=== PATIENT | female | born 1935 | race Caucasian/White ===

== ENCOUNTER 2017-05-22 09:59 | Day surgery (SDC) | payer MEDICARE, OTHER ==
[~2017-05-22] VITALS: Ht 152.4 cm; Wt 58.3 kg
[~2017-05-22 09:59] MED LIST: ASPI81EC PO; ATOR40TA PO; CIPR500 PO; DOCU100 PO; LEVSOD100 PO; LEVSOD25 PO; LOVA20 PO; METO25ER; MULVITMIND PO; Miralax17 GM PO; NAPR220 PO; OMEP10ER PO; OXYACE5T PO; PANT40 PO; PRAV20 PO; PROM25 PO; SUCR1 PO
== END 2017-05-22 12:11 | disposition home or self-care (01) ==
LOC: ORSCSDS 09:59
PROVIDERS: Internal Medicine Gastroenterology
PROC: 0DB48ZX Excision of Esophagogastric Junction, Via Natural or Artificial Opening Endoscopic, Diagnostic (ICD-10-PCS; principal; 2017-05-22 11:30)
DX: R13.10 Dysphagia, unspecified (principal); K22.70 Barrett's esophagus without dysplasia; K22.2 Esophageal obstruction; Z85.01 Personal history of malignant neoplasm of esophagus; E78.5 Hyperlipidemia, unspecified; E03.9 Hypothyroidism, unspecified; Z87.891 Personal history of nicotine dependence; Z79.82 Long term (current) use of aspirin; Z79.899 Other long term (current) drug therapy
CPT/HCPCS: 87081; 88305; J7120

== ENCOUNTER 2018-06-03 22:44 | Inpatient (IN) | payer MEDICARE, OTHER ==
[~2018-06-03] VITALS: Ht 149.9 cm; Wt 54.6 kg
[~2018-06-03 22:44] MED LIST changes: -ASPI81EC PO; +LO-DOSE ASPIRIN81 MG PO; -METO25ER; +Metoprolol Tart25 MG PO
[2018-06-04 00:24] LABS: BASOPHILS ABSOLUTE AUTO 0.03 K/mm3 (0.00-0.23); BASOPHILS PERCENT AUTO 0 % (0-2); EOSINOPHILS ABSOLUTE AUTO 0.06 K/mm3 (0.00-0.68); EOSINOPHILS PERCENT AUTO 1 % (0-6); Hematocrit 33.4 % (33.0-51.0); Hemoglobin 10.7 g/dL (11.5-16.0); IMMATURE GRAN ABSOLUTE AUTO 0.03 K/mm3 (0.00-0.10); IMMATURE GRAN PERCENT AUTO 0 % (0-1); LYMPHOCYTES PERCENT AUTO 6 % (21-46); MONOCYTES ABSOLUTE AUTO 0.32 K/mm3 (0.16-1.47); MONOCYTES PERCENT AUTO 4 % (4-13); Mean Corpuscular HGB 33.1 pg (26.0-34.0); Mean Corpuscular Volume 103 fL (80-100); Mean Platelet Volume 10.2 fL (9.1-12.4); NEUTROPHILS ABSOLUTE AUTO 7.67 K/mm3 (1.96-9.15); NEUTROPHILS PERCENT AUTO 89 % (41-73); Platelet Count 187 K/mm3 (150-400); RDW Coefficient Variation 14.9 % (11.7-14.2); RDW Standard Deviation 56.8 fL (35.1-46.3); Red Blood Cell Count 3.23 M/mm3 (3.80-5.20); White Blood Cell Count 8.61 K/mm3 (4.00-11.30)
[2018-06-04 00:32] LABS: Magnesium, Blood 2.1 mg/dL (1.6-2.4)
[2018-06-04 00:36] LABS: Alanine Aminotransfer (ALT/SGP 137 U/L (12-78); Albumin, Blood 3.3 g/dL (3.4-5.0); Albumin/Globulin Ratio 1.1 (0.8-1.8); Alk Phos 91 U/L (50-136); Anion Gap 5 mmol/L (6-16); Aspartate Aminotrans (AST/SGOT 247 U/L (12-37); Bilirubin, Total 0.6 mg/dL (0.1-1.0); Blood Urea Nitrogen 26 mg/dL (8-24); Bun/Creatinine Ratio 30.2 (12.0-20.0); CO2, Blood 26 mmol/L (21-32); Calcium, Blood 7.6 mg/dL (8.5-10.1); Chloride, Blood 110 mmol/L (98-108); Creatinine, Blood 0.86 mg/dL (0.40-1.00); Glomerular Filtration Rate >60 (60-); Glucose, Blood 100 mg/dL (70-99); Potassium, Blood 4.6 mmol/L (3.5-5.5); Sodium, Blood 141 mmol/L (136-145); Total Protein, Blood 6.3 g/dL (6.4-8.2)
[2018-06-04 00:37] LABS: Troponin I <0.015 ng/mL (0.000-0.040)
[2018-06-04 01:14] LABS: CHOL/HDL RATIO 2.6; Cholesterol 148 mg/dL (50-200); HDL Cholesterol 58 mg/dL (>39); LDL/HDL RATIO 1.3; Low Density Lipoprotein Chol 77 mg/dL (0-110); Triglycerides 66 mg/dL (30-160); Very Low Density Lipoprot Chol 13 mg/dL (6-32)
[2018-06-04] MEDS ORDERED: ROSU10TA PO (03:50)
[2018-06-04] MEDS ORDERED: ACET325 PO (03:55)
[2018-06-04] MEDS ORDERED: LEFL20 PO (03:58)
[2018-06-04] MEDS ORDERED: CENTRUM SILVER1 EAC1 PO (03:59)
[2018-06-04] MEDS ORDERED: Loradamed10 MG PO (03:59)
[2018-06-04] MEDS ORDERED: VOLTAREN100 GM TOP (04:00)
[2018-06-04] MEDS ORDERED: [UNRECOGNIZED DRUG - OTHER] TOP (04:04)
[2018-06-04] MEDS ORDERED: [UNRECOGNIZED DRUG - OTHER] (04:06)
--- NOTE | 2018-06-04 05:57 | NUR ---
END OF SHIFT SUMMARY ASSUMED CARE OF PT FROM THE [facility] ED NURSE. PT TO ROOM VIA STRETCHER BUT AMBULATES INTO BED WITH LITTLE ASSIST. PT ALERT AND ORIENTED, TALKING WITH STAFF. POOR HISTORIAN. PT DENYING CP/PRESSURE UPON ADMISSIONS AND HAS DENIED SINCE. STATES CP SUBSIDED IN ED. PT HEART SOUNDS PRESENT WITH LOUD MURMUR. LUNG SOUNDS CLEAR. BOWEL SOUNDS HYERACTIVE. ABDOMEN MOD DISTENDED, PT STATES LITTLE TENDERNESS ABDOMINALLY. PT C/O HEADACHE UPON ADMISSION. MEDICATED PER EMAR. PT HAD ACOUPLE BOUTS OF NAUSEA WITH NO EMESIS, APPEARS TO HAVE SINCE SUBSIDED POST PANTOPRAZOLE IV ADMINISTRATION. PT HAS NPO ORDERS PLACED. VSS T/O SHIFT. 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 ASSESMENT SHOWS PT NOT NEEDING ISO AT THIS TIME. WILL NEED TO START MRSA CLEARANCE. PT HAS APPEARED TO BE RESTING SINCE ADMISSION ASSESMENT. WILL CONTINUE TO MONITOR PT UNTIL SHIFT SUMMARY. CALL LIGHT WITHIN REACH OF PT.
[2018-06-04 06:43] LABS: Source, Urine Clean Catch
[2018-06-04 06:46] LABS: Appearance, Urine Clear (Clear); Bilirubin, Urine Neg (Neg); Blood, Urine Neg (Neg); Color, Urine Yellow (P-Yellow); Glucose Qualitative, Urine Neg (Neg); Ketones, Urine Neg (Neg); Leukocyte Esterase, Urine Neg (Neg); Nitrite, Urine Neg (Neg); Protein, Urine Neg (Neg); Urobilinogen, Urine NORM (Normal)
--- NOTE | 2018-06-04 11:51 | NUR ---
ECHOCARDIOGRAM COMPLETED
[2018-06-04 12:38] LABS: Hematocrit 32.4 % (33.0-51.0); Hemoglobin 10.6 g/dL (11.5-16.0); Mean Corpuscular HGB 33.4 pg (26.0-34.0); Mean Corpuscular HGB Conc 32.7 g/dL (31.5-36.5); Mean Corpuscular Volume 102 fL (80-100); Mean Platelet Volume 9.6 fL (9.1-12.4); Platelet Count 177 K/mm3 (150-400); RDW Standard Deviation 55.6 fL (35.1-46.3); Red Blood Cell Count 3.17 M/mm3 (3.80-5.20); White Blood Cell Count 12.58 K/mm3 (4.00-11.30)
[2018-06-04 12:54] LABS: Alanine Aminotransfer (ALT/SGP 159 U/L (12-78); Alk Phos 81 U/L (50-136); Anion Gap 6 mmol/L (6-16); Aspartate Aminotrans (AST/SGOT 215 U/L (12-37); Bilirubin, Total 0.6 mg/dL (0.1-1.0); Blood Urea Nitrogen 17 mg/dL (8-24); Bun/Creatinine Ratio 25.1 (12.0-20.0); CO2, Blood 22 mmol/L (21-32); Calcium, Blood 7.8 mg/dL (8.5-10.1); Chloride, Blood 112 mmol/L (98-108); Creatinine, Blood 0.68 mg/dL (0.40-1.00); Glomerular Filtration Rate >60 (60-); Glucose, Blood 89 mg/dL (70-99); Potassium, Blood 4.6 mmol/L (3.5-5.5); Sodium, Blood 140 mmol/L (136-145)
--- NOTE | 2018-06-04 13:53 | NUR ---
Patient gave permission to access chart and give patient care.
--- NOTE | 2018-06-04 16:07 | NUR ---
THIS PT GAVE ME PERMISSION TO PROVIDE CARE TO HER ON 06/05/18.
--- NOTE | 2018-06-04 16:13 | NUR ---
PT RETURNED FROM MRI IMAGING, FEELING THIRSTY, RESTARTED IV FLUIDS AND ASSISTED WITH ORAL CARE AND GLYCERIN SWABS AND ORAL MOISTURIZER.
--- NOTE | 2018-06-04 18:47 | NUR ---
PT SLEPT OFF AND ON THROUGHOUT THIS SHIFT. SHE REPORT THAT SHE HAS HAD INCREASED DROWSINESS OVER THE LAST SEVERAL WEEKS AND "TIRES EASILY" PT WENT FOR MRI TODAY. DR GARCIA STARTED ABX AND STATED THAT IF PT HAS CONTINUED PAIN THAT IS NOT ADDRESSED BY THE FENTYNAL, SHE CAN HAVE A TYLENOL SC, THIS RN WILL PLACE ORDER SO IT IS AVALIABLE IF NOC RN SHOULD NEED IT. PT COMPLAINT OF PAIN IN HER UPPER BACK AND SHOULDERS WELL THE BACK OF HER HEAD, SHE STATES IT IT BECAUSE SHE WAS NOT ABLE TO HAVE COFFEE TODAY. DR GARCIA STATED ICE CHIPS AND SIPS OF H2O ARE ALLOWED TO PROVIDE MOISTURE, OTHERWISE, CONTINUE NPO UNTIL AM WHEN LABS ARE COMPLETED AND HE HAS REVIEWED HER CASE TOMORROW. WILL GIVE REPORT TO NOC RN.
[2018-06-05 04:52] LABS: BASOPHILS ABSOLUTE AUTO 0.03 K/mm3 (0.00-0.23); BASOPHILS PERCENT AUTO 0 % (0-2); EOSINOPHILS ABSOLUTE AUTO 0.08 K/mm3 (0.00-0.68); EOSINOPHILS PERCENT AUTO 1 % (0-6); Hematocrit 30.8 % (33.0-51.0); Hemoglobin 10.1 g/dL (11.5-16.0); IMMATURE GRAN ABSOLUTE AUTO 0.03 K/mm3 (0.00-0.10); IMMATURE GRAN PERCENT AUTO 0 % (0-1); LYMPHOCYTES ABSOLUTE AUTO 0.67 K/mm3 (0.84-5.20); LYMPHOCYTES PERCENT AUTO 9 % (21-46); MONOCYTES ABSOLUTE AUTO 0.98 K/mm3 (0.16-1.47); MONOCYTES PERCENT AUTO 13 % (4-13); Mean Corpuscular HGB 33.6 pg (26.0-34.0); Mean Corpuscular HGB Conc 32.8 g/dL (31.5-36.5); Mean Corpuscular Volume 102 fL (80-100); Mean Platelet Volume 10.1 fL (9.1-12.4); NEUTROPHILS ABSOLUTE AUTO 5.87 K/mm3 (1.96-9.15); NEUTROPHILS PERCENT AUTO 77 % (41-73); Platelet Count 176 K/mm3 (150-400); RDW Coefficient Variation 15.1 % (11.7-14.2); RDW Standard Deviation 55.5 fL (35.1-46.3); Red Blood Cell Count 3.01 M/mm3 (3.80-5.20); White Blood Cell Count 7.66 K/mm3 (4.00-11.30)
[2018-06-05 05:14] LABS: Alanine Aminotransfer (ALT/SGP 111 U/L (12-78); Albumin, Blood 2.7 g/dL (3.4-5.0); Albumin/Globulin Ratio 0.9 (0.8-1.8); Alk Phos 80 U/L (50-136); Anion Gap 4 mmol/L (6-16); Aspartate Aminotrans (AST/SGOT 120 U/L (12-37); Bilirubin, Total 0.7 mg/dL (0.1-1.0); Blood Urea Nitrogen 10 mg/dL (8-24); Bun/Creatinine Ratio 13.3 (12.0-20.0); CO2, Blood 24 mmol/L (21-32); Calcium, Blood 7.6 mg/dL (8.5-10.1); Chloride, Blood 111 mmol/L (98-108); Creatinine, Blood 0.75 mg/dL (0.40-1.00); Globulin, Blood 2.9 g/dL (2.2-4.0); Glomerular Filtration Rate >60 (60-); Glucose, Blood 114 mg/dL (70-99); Potassium, Blood 4.2 mmol/L (3.5-5.5); Sodium, Blood 139 mmol/L (136-145); Total Protein, Blood 5.6 g/dL (6.4-8.2)
--- NOTE | 2018-06-05 06:18 | NUR ---
SHIFT SUMMARY: PATIENT DENIED NEED FOR ANY PAIN MEDICATION THIS SHIFT, SLEPT WELL, VSS, CALL LIGHT WITHIN REACH, BED LOW AND LOCKED.
--- NOTE | 2018-06-05 07:50 | NUR ---
AM ASSESSMENT: Pt resting in bed. LS clear. HR reg with prominant murmur heard. BT positive. Pt denies pain at this time. States that she is feeling pretty good and is hoping to maybe go home today. VSS. UP with SBA to BSC. IVF running per orders. Pt denies other needs. Call light in reach. WIll monitor.
--- NOTE | 2018-06-05 18:09 | NUR ---
shift summary: Pt resting in bed at this time. Has had multiple loose, soft ashley stools today. Pt has denied abd pain or chest pain, she has had a c/o a BEST that improved with coffee. LS have remained clear. HR has remained NSR. Pt was up to the bathroom in the afternoon and stated that she felt very weak. Was assissted back to bed and tolerated well. Encouraged her to call for assistance when getting up out of bed. VSS throughout shift. NO other changes. Will report to night RN.
--- NOTE | 2018-06-06 02:46 | NUR ---
SHIFT SUMMARY: PATEINT MAINTAINED WELL THIS SHIFT, SLEPT WELL AND NO C/O PAIN. VSS, CALL LIGHT WITHIN REACH, BED LOW AND LOCKED WITH NO OTHER ISSUES NOTED.
[2018-06-06 04:32] LABS: BASOPHILS ABSOLUTE AUTO 0.03 K/mm3 (0.00-0.23); BASOPHILS PERCENT AUTO 1 % (0-2); EOSINOPHILS ABSOLUTE AUTO 0.05 K/mm3 (0.00-0.68); EOSINOPHILS PERCENT AUTO 1 % (0-6); Hematocrit 34.2 % (33.0-51.0); Hemoglobin 11.1 g/dL (11.5-16.0); IMMATURE GRAN ABSOLUTE AUTO 0.01 K/mm3 (0.00-0.10); IMMATURE GRAN PERCENT AUTO 0 % (0-1); LYMPHOCYTES ABSOLUTE AUTO 0.55 K/mm3 (0.84-5.20); LYMPHOCYTES PERCENT AUTO 13 % (21-46); MONOCYTES ABSOLUTE AUTO 0.39 K/mm3 (0.16-1.47); MONOCYTES PERCENT AUTO 9 % (4-13); Mean Corpuscular HGB 33.1 pg (26.0-34.0); Mean Corpuscular HGB Conc 32.5 g/dL (31.5-36.5); Mean Corpuscular Volume 102 fL (80-100); Mean Platelet Volume 10.3 fL (9.1-12.4); NEUTROPHILS ABSOLUTE AUTO 3.24 K/mm3 (1.96-9.15); NEUTROPHILS PERCENT AUTO 76 % (41-73); Platelet Count 196 K/mm3 (150-400); RDW Coefficient Variation 14.9 % (11.7-14.2); RDW Standard Deviation 55.4 fL (35.1-46.3); Red Blood Cell Count 3.35 M/mm3 (3.80-5.20); White Blood Cell Count 4.27 K/mm3 (4.00-11.30)
[2018-06-06 04:53] LABS: Alanine Aminotransfer (ALT/SGP 95 U/L (12-78); Albumin, Blood 3.1 g/dL (3.4-5.0); Albumin/Globulin Ratio 0.9 (0.8-1.8); Alk Phos 129 U/L (50-136); Anion Gap 6 mmol/L (6-16); Aspartate Aminotrans (AST/SGOT 82 U/L (12-37); Bilirubin, Total 0.7 mg/dL (0.1-1.0); Blood Urea Nitrogen 7 mg/dL (8-24); Bun/Creatinine Ratio 9.6 (12.0-20.0); CO2, Blood 24 mmol/L (21-32); Calcium, Blood 8.4 mg/dL (8.5-10.1); Chloride, Blood 112 mmol/L (98-108); Creatinine, Blood 0.73 mg/dL (0.40-1.00); Globulin, Blood 3.3 g/dL (2.2-4.0); Glomerular Filtration Rate >60 (60-); Glucose, Blood 89 mg/dL (70-99); Potassium, Blood 4.2 mmol/L (3.5-5.5); Sodium, Blood 142 mmol/L (136-145); Total Protein, Blood 6.4 g/dL (6.4-8.2)
--- NOTE | 2018-06-06 12:40 | NUR ---
The pt has had 3 episodes of diarrhea this morning, beginning just after the IV zosyn infusion was started. States that she also had this yesterday.
--- NOTE | 2018-06-06 17:56 | NUR ---
Alert, oriented and pleasant patient today, c/o "bad headache" this morning, with relief with Tylenol. Medicated again this afternoon with Tylenol for a moderate headache. She has been minimally active today, napping with brief periods of being awake for toileting and interactions with staff. She has not had much of an appetite; drinking 2 ensure boxes and eating 2 yogurts this evening. She has had at least 5 episodes of liquid diarrhea today, using the bedside commode.
[2018-06-07 03:56] LABS: BASOPHILS ABSOLUTE AUTO 0.02 K/mm3 (0.00-0.23); BASOPHILS PERCENT AUTO 1 % (0-2); EOSINOPHILS ABSOLUTE AUTO 0.09 K/mm3 (0.00-0.68); EOSINOPHILS PERCENT AUTO 3 % (0-6); Hematocrit 31.5 % (33.0-51.0); Hemoglobin 10.3 g/dL (11.5-16.0); IMMATURE GRAN PERCENT AUTO 0 % (0-1); LYMPHOCYTES ABSOLUTE AUTO 0.64 K/mm3 (0.84-5.20); LYMPHOCYTES PERCENT AUTO 18 % (21-46); MONOCYTES PERCENT AUTO 22 % (4-13); Mean Corpuscular HGB 33.1 pg (26.0-34.0); Mean Corpuscular HGB Conc 32.7 g/dL (31.5-36.5); Mean Corpuscular Volume 101 fL (80-100); Mean Platelet Volume 10.3 fL (9.1-12.4); NEUTROPHILS ABSOLUTE AUTO 2.08 K/mm3 (1.96-9.15); NEUTROPHILS PERCENT AUTO 57 % (41-73); Platelet Count 185 K/mm3 (150-400); RDW Coefficient Variation 14.9 % (11.7-14.2); RDW Standard Deviation 55.8 fL (35.1-46.3); Red Blood Cell Count 3.11 M/mm3 (3.80-5.20); White Blood Cell Count 3.63 K/mm3 (4.00-11.30)
[2018-06-07 04:18] LABS: Alanine Aminotransfer (ALT/SGP 111 U/L (12-78); Albumin, Blood 2.8 g/dL (3.4-5.0); Albumin/Globulin Ratio 0.9 (0.8-1.8); Alk Phos 210 U/L (50-136); Anion Gap 5 mmol/L (6-16); Aspartate Aminotrans (AST/SGOT 128 U/L (12-37); Bilirubin, Total 0.8 mg/dL (0.1-1.0); Blood Urea Nitrogen 9 mg/dL (8-24); Bun/Creatinine Ratio 12.6 (12.0-20.0); CO2, Blood 25 mmol/L (21-32); Calcium, Blood 8.4 mg/dL (8.5-10.1); Chloride, Blood 111 mmol/L (98-108); Creatinine, Blood 0.71 mg/dL (0.40-1.00); Globulin, Blood 3.2 g/dL (2.2-4.0); Glomerular Filtration Rate >60 (60-); Glucose, Blood 88 mg/dL (70-99); Potassium, Blood 4.1 mmol/L (3.5-5.5); Sodium, Blood 141 mmol/L (136-145)
--- NOTE | 2018-06-07 05:04 | NUR ---
SHIFT SUMMARY: PATEINT SLEPT WELL THIS SHIFT, VSS, X1 EPISODE OF DIARRHEA. PATIENT NECK AND HEAD PAIN INCREASING, MEDICATION GIVEN PER MD ORDER. NO OTHER ISSUES NOTED THIS SHIFT, CALL LIGHT WITHIN REACH, BED LOW AND LOCKED.
--- NOTE | 2018-06-07 09:30 | NUR ---
PT BEGINNING TO FEEL NAUSEOUS AND HAVING INCREASED DIARRHEA. DR HUSAIN TO SEE PATIENT AND ORDERED PT BE NPO, LIPASE BE CHECKED, D5 1/2 NS WITH 20MEQ K+ BE GIVEN AT 100 ML/HR FOR FLUID, C-DIFF TEST ON STOOL. PLACED ORDERS IN COMPUTER. WILL CONTINUE TO MONITOR AND ASSIST PATIENT. BED LOCKED AND LOW, CALL LIGHT WITHIN EASY REACH.
--- NOTE | 2018-06-07 14:43 | NUR ---
TRANSFERRED CARE TO RN JADE SARABIA, PT SITTING UP IN BED, ABLE TO EXPRESS NEEDS, DR. DAS SHOULD BE IN TO D/C PATIENT TODAY.
--- NOTE | 2018-06-07 14:46 | NUR ---
TRANSFERRED CARE TO EMERY FULTON. RECEIVED CALL FROM EMERY COMER STATING PT IS POSITIVE FOR MRSA IN NARES, ENSURE SHE IS IN ISOLATION.
--- NOTE | 2018-06-07 18:14 | NUR ---
Shift Summary Assumed care of pt from Erum Sheikh RN at approx 1400. VSS. In no apparent sign of distress. Pt is A&Ox4. C/o mild BEST, medicated with tylenol. No differences noted in assessment compared to assessment reported by Erum. Pt placed in isolation for MRSA positive. Cdif negative. Pt on RA. Denies any other acute complaits or requests at this time. Erum LAND reassumed care of pt at approx 1750 and report given.
--- NOTE | 2018-06-07 18:17 | NUR ---
CALLED DR. KELLY WITH GI CONSULT PER DR. HUSAIN. HE STATED HE WILL SEE THE PATIENT.
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
--- NOTE | 2018-06-07 19:30 | NUR ---
ASSUMED CARE PT RESTING IN ROOM COMFORTABLY AT THIS TIME. PER DAY SHIFT PT HAD SOME N/V EARLY IN THE DAY. PT WAS RETURNED TO NPO STATUS, AND GI CONSULT WAS PLACED. GI CONSULT WILL SEE PT IN THE AM. PT TO BE NPO UNTIL THEN. PER DAY SHIFT RN PT HAS BEEN REPORTING FEELING OF SADNESS ABOUT NOT BEING ABLE TO GO HOME. PT IS TIRED OF HOSPITAL AND THE BED, REPORTS HAS BACK PAIN FROM THE BED. THIS RN OFFERED EGG CRATE TO PT TO HELP EASE BACK PAIN. PT ACCEPTED, WILL PROVIDE FOR PT JOSE CARLOS. DENIES OTHER NEEDS AT THIS TIME. PT IS ABLE TO STAND AND MOVE SELF TO BSC W/O HELP. RESP EVEN UNLABORED ON RA W/ SATS >92%, DENIES SOB. CALL LIGHT IS W/N REACH.
--- NOTE | 2018-06-08 06:17 | NUR ---
SHIFT SUMMARY PT SLEEPING IN ROOM COMFORTABLY. NO ACUTE CHANGES IN STATUS T/O NIGHT. PT SLEPT WELL. DID COMPLAIN OF HEADACHE EARLY I SHIFT AND WAS MEDICATED PER EMAR. EGG CRATE WAS ADDED TO BED FOR CHRONIC BACK PAIN,. PT REPORTS BACK PAIN IS BETTER AND MORE TOLERABLE W/ EGG CRATE. RESP EVEN UNLABORED ON RA W/ SATS >92%. D1/2 NS INFUSING IN PIV. PT IS INDEPENDENT TO BSC. CALL LIGHT IN REACH.
--- NOTE | 2018-06-08 07:50 | NUR ---
AM ASSESSMENT: Pt laying in bed C/O severe BEST from needing caffiene. Pt NPO at this time. Will call physician to see if pt can have coffee. VSS. LS clear. BT positive. HR reg. Pt denies abd pain, nausea or diarrhea. SBA to BSC. IVF running per orders. NO other needs at this time. Call light in reach. WIll monitor.
[2018-06-08 08:19] LABS: BASOPHILS ABSOLUTE AUTO 0.02 K/mm3 (0.00-0.23); BASOPHILS PERCENT AUTO 0 % (0-2); EOSINOPHILS ABSOLUTE AUTO 0.13 K/mm3 (0.00-0.68); EOSINOPHILS PERCENT AUTO 3 % (0-6); Hematocrit 30.6 % (33.0-51.0); Hemoglobin 10.1 g/dL (11.5-16.0); IMMATURE GRAN ABSOLUTE AUTO 0.01 K/mm3 (0.00-0.10); IMMATURE GRAN PERCENT AUTO 0 % (0-1); LYMPHOCYTES ABSOLUTE AUTO 0.49 K/mm3 (0.84-5.20); LYMPHOCYTES PERCENT AUTO 10 % (21-46); MONOCYTES ABSOLUTE AUTO 0.84 K/mm3 (0.16-1.47); MONOCYTES PERCENT AUTO 17 % (4-13); Mean Corpuscular HGB 33.3 pg (26.0-34.0); Mean Corpuscular Volume 101 fL (80-100); Mean Platelet Volume 10.2 fL (9.1-12.4); NEUTROPHILS ABSOLUTE AUTO 3.61 K/mm3 (1.96-9.15); NEUTROPHILS PERCENT AUTO 71 % (41-73); Platelet Count 189 K/mm3 (150-400); RDW Coefficient Variation 14.9 % (11.7-14.2); RDW Standard Deviation 55.8 fL (35.1-46.3); Red Blood Cell Count 3.03 M/mm3 (3.80-5.20)
[2018-06-08 08:40] LABS: Anion Gap 5 mmol/L (6-16); Blood Urea Nitrogen 5 mg/dL (8-24); Bun/Creatinine Ratio 7.9 (12.0-20.0); CO2, Blood 26 mmol/L (21-32); Calcium, Blood 7.7 mg/dL (8.5-10.1); Chloride, Blood 110 mmol/L (98-108); Creatinine, Blood 0.63 mg/dL (0.40-1.00); Glomerular Filtration Rate >60 (60-); Glucose, Blood 100 mg/dL (70-99); Potassium, Blood 3.8 mmol/L (3.5-5.5); Sodium, Blood 141 mmol/L (136-145)
[2018-06-08 09:12] LABS: Albumin, Blood 2.5 g/dL (3.4-5.0); Albumin/Globulin Ratio 0.8 (0.8-1.8); Bilirubin, Direct 0.6 mg/dL (0.0-0.3); Bilirubin, Indirect 0.6 mg/dL (0.1-0.7); Bilirubin, Total 1.2 mg/dL (0.1-1.0); Globulin, Blood 3.3 g/dL (2.2-4.0); Total Protein, Blood 5.8 g/dL (6.4-8.2)
--- NOTE | 2018-06-08 12:00 | NUR ---
update: Pt back in room after MRI. Having small amount of full liquid diet. C/O some abd pain and nausea. Will treat per orders. VSS. No other changes. Will monitor.
--- NOTE | 2018-06-08 18:04 | NUR ---
shift summary: Pt resting in room at this time. She had an increase in abd pain and nausea this shift after eating some full liquids. Pt was treated per orders and pain and nausea improved. Orders from GI this shift changed to CL diet, no fat. Change in some medicaions and IVF per physician. VSS throughout shift. No other changes at this time. Will report to night RN.
--- NOTE | 2018-06-08 19:30 | NUR ---
ASSUMED CARE PT SLEEPING IN ROOM COMFORTABLY. PER DAY SHIFT PT HAD ELEVATED LIVER ENZYMES TODAY AND WAS PLACED ON CLEAR LIQUID DIET, W/ NO FATTY FOODS. PT TO BE OBSERVED ONE MORE NIGHT AND REEVALUATE IN THE AM. PT AFFECT IS DOWN AND SAD. REPORTS JUST WANTS TO GO HOME. REPORTS BACK PAIN THAT IS CHRONIC IS WORSE IN HOSP BED. PT WAS MEDICATED FOR PAIN T/O DAY AND WILL BE MEDICTED PER EMAR FOR CONTINUED PAIN. RESP EVEN UNLBAORED ON RA W/ SATS >92%. DENIES CP OR SOB. CALL LIGHT IN REACH.
[2018-06-09 04:05] LABS: BASOPHILS ABSOLUTE AUTO 0.02 K/mm3 (0.00-0.23); BASOPHILS PERCENT AUTO 1 % (0-2); EOSINOPHILS ABSOLUTE AUTO 0.12 K/mm3 (0.00-0.68); EOSINOPHILS PERCENT AUTO 4 % (0-6); Hematocrit 29.2 % (33.0-51.0); Hemoglobin 9.7 g/dL (11.5-16.0); IMMATURE GRAN ABSOLUTE AUTO 0.01 K/mm3 (0.00-0.10); IMMATURE GRAN PERCENT AUTO 0 % (0-1); LYMPHOCYTES ABSOLUTE AUTO 0.62 K/mm3 (0.84-5.20); LYMPHOCYTES PERCENT AUTO 22 % (21-46); MONOCYTES ABSOLUTE AUTO 0.59 K/mm3 (0.16-1.47); MONOCYTES PERCENT AUTO 21 % (4-13); Mean Corpuscular HGB Conc 33.2 g/dL (31.5-36.5); Mean Corpuscular Volume 99 fL (80-100); NEUTROPHILS ABSOLUTE AUTO 1.52 K/mm3 (1.96-9.15); NEUTROPHILS PERCENT AUTO 53 % (41-73); Platelet Count 191 K/mm3 (150-400); RDW Coefficient Variation 14.9 % (11.7-14.2); RDW Standard Deviation 54.3 fL (35.1-46.3); Red Blood Cell Count 2.94 M/mm3 (3.80-5.20); White Blood Cell Count 2.88 K/mm3 (4.00-11.30)
[2018-06-09 04:16] LABS: Anion Gap 5 mmol/L (6-16); Blood Urea Nitrogen 5 mg/dL (8-24); Bun/Creatinine Ratio 7.8 (12.0-20.0); CO2, Blood 26 mmol/L (21-32); Chloride, Blood 111 mmol/L (98-108); Creatinine, Blood 0.64 mg/dL (0.40-1.00); Glomerular Filtration Rate >60 (60-); Glucose, Blood 84 mg/dL (70-99); Sodium, Blood 142 mmol/L (136-145)
[2018-06-09 04:17] LABS: Triglycerides 73 mg/dL (30-160)
--- NOTE | 2018-06-09 06:24 | NUR ---
SHIFT SUMMARY PT SLEEPING IN ROOM COMFORTABLY. NO ACUTE CHANGES T.O NIGHT. PT REMAINED PAINFUL WITH CHRONIC BACK PAIN. WAS MEDICATED PER EMAR FOR PAIN. RESP EVEN UNLABORED ON RA. DENIED ANY N/V. PT WAS INDEPENDENT TO BSC IN ROOM. LR INFUSING IN PIV T/O NIGHT. PT DENIED OTHER NEEDS. CALL LIGHT IN REACH.
[2018-06-09 08:00] LABS: Albumin, Blood 2.4 g/dL (3.4-5.0); Albumin/Globulin Ratio 0.8 (0.8-1.8); Bilirubin, Direct 0.8 mg/dL (0.0-0.3); Bilirubin, Indirect 0.3 mg/dL (0.1-0.7); Bilirubin, Total 1.1 mg/dL (0.1-1.0); Globulin, Blood 3.2 g/dL (2.2-4.0); Total Protein, Blood 5.6 g/dL (6.4-8.2)
--- NOTE | 2018-06-09 10:27 | NUR ---
RECEIVED REPORT THIS MORNING FROM EMERY HOBSON AND ASSUMED CARE OF PATIENT. SHE IS SITTING UP IN BED AND HAS QUESTIONS ABOUT HER CURRENT ILLNESS AND WHAT THE POC IS GOING TO BE, REVIEWED QUESTIONS WITH PATIENT AND DR. HUSAIN ARRIVED TO SEE PATIENT. PT ASKED AND RECEIVED SATISFACTORY ANSWERS, WANTS DIET ADVANCED TOLERATED AND IF SHE DOES WELL SHE MAY BE ABLE TO GO HOME. PLACED ORDERS PER DR ORDER AND WILL CONTINUE TO MONITOR PATIENT. BED LOCKED AND LOW, CALL LIGHT WITHIN EASY REACH.
--- NOTE | 2018-06-09 11:03 | NUR ---
CALLED DR. HUSAIN AND DR. WALLER WITH LIVER PANEL RESULTS. THEY BOTH STATED TO CONTINUE POC TO ADVANCE DIET TOLERATED, LOW FAT FOOD AND IF PATIENT TOLERATES, SHE CAN GO HOME TODAY.
--- NOTE | 2018-06-09 11:24 | NUR ---
CALLED HAND ZIPPER TRIMMER TO ASK FOR BANANNA FOR PATIENT LUNCH TRAY. KITCHEN STATED IT WILL BE ON HER TRAY.
--- NOTE | 2018-06-09 14:30 | NUR ---
CALLED DR. HUSAIN TO REPORT PATIENT ATE AND IS NOT FEELING NAUSEOUS OR HAVING ANY DIARRHEA AT THIS TIME. HE STATED HE WILL PLACE DISCHARGE ORDERS FOR PATIENT AFTER AWHILE. PT AFFECT IS GREATLY IMPROVED WHEN THIS NURSE TOLD HER THE NEW OF THE DISCHARGE ORDER BEING PLACED. WILL CONTINUE TO MONITOR AND FOLLOW ORDERS.
--- NOTE | 2018-06-09 18:35 | NUR ---
GAVE PATIENT DISCHARGE INSTRUCTIONS, MEDICATION LIST AND EDUCATIONAL MATERIALS. PT EXPRESSED UNDERSTANDING AND WAS DISCHARGED HOME WITH HER .
[2018-06-10 04:05] LABS: HBSAG SCREEN Negative (Negative); HEP A AB, IGM Negative (Negative); HEP B CORE AB, IGM Negative (Negative); HEP C VIRUS AB <0.1 (0.0-0.9)
[2018-06-10 20:05] LABS: IMMUNOGLOBULIN G, QN, SERUM 454 mg/dL (700-1600)
== END 2018-06-09 17:23 | disposition home or self-care (01) | DRG 440 ==
LOC: ER 22:44 → PCU 06-04 00:04 → ER 06-04 00:04 → PCU 06-04 01:23
PROVIDERS: Emergency Medicine; Family Medicine; Internal Medicine Endocrinology, Diabetes & Metabolism; Student in an Organized Health Care Education/Training Program; ADMIT Internal Medicine
DX: K85.10 Biliary acute pancreatitis without necrosis or infection (principal); Z85.01 Personal history of malignant neoplasm of esophagus; M79.7 Fibromyalgia; Z87.891 Personal history of nicotine dependence; K21.9 Gastro-esophageal reflux disease without esophagitis; N20.0 Calculus of kidney; R19.7 Diarrhea, unspecified; M06.9 Rheumatoid arthritis, unspecified; K80.70 Calculus of gallbladder and bile duct without cholecystitis without obstruction
CPT/HCPCS: 36415; 71275; 74175; 74181; 74183; 76705; 80048; 80053; 80061; 80074; 80076; 81003; 82330; 82787; 83690; 83735; 84478; 84484; 85025; 85027; 86850; 86900; 86901; 87070; 87081; 87493; 93005; 93010; 93306; 96365-59; 96375-59; 99285-25; A9577; C9113; J0610; J1650; J2270; J2405; J2543; J3010; J3475; J3480; J7030; J7040; J7120; Q9967

== ENCOUNTER 2019-06-20 13:55 | Emergency (ER) | payer MEDICARE ==
[~2019-06-20] VITALS: Ht 152.4 cm; Wt 52.2 kg
[~2019-06-20 13:55] MED LIST changes: +ACET325 PO; +CENTRUM SILVER1 EAC1 PO; +LEFL20 PO; +Loradamed10 MG PO; +ROSU10TA PO; +VOLTAREN100 GM TOP; +[UNRECOGNIZED DRUG - OTHER]; +[UNRECOGNIZED DRUG - OTHER] TOP
[2019-06-20] MEDS ORDERED: ATOR80 PO (14:14)
[2019-06-20 14:21] LABS: Hemoglobin 11.1 g/dL (11.5-16.0); Mean Corpuscular HGB 35.5 pg (26.0-34.0); Mean Corpuscular HGB Conc 32.6 g/dL (31.5-36.5); Mean Corpuscular Volume 109 fL (80-100); Mean Platelet Volume 9.6 fL (9.1-12.4); Platelet Count 240 K/mm3 (150-400); RDW Coefficient Variation 14.6 % (11.7-14.2); RDW Standard Deviation 57.9 fL (35.1-46.3); Red Blood Cell Count 3.13 M/mm3 (3.80-5.20); White Blood Cell Count 8.59 K/mm3 (4.00-11.30)
[2019-06-20 14:45] LABS: Alanine Aminotransfer (ALT/SGP 49 U/L (12-78); Albumin, Blood 3.2 g/dL (3.4-5.0); Alk Phos 99 U/L (50-136); Anion Gap 5 mmol/L (6-16); Aspartate Aminotrans (AST/SGOT 81 U/L (12-37); Bilirubin, Total 0.6 mg/dL (0.1-1.0); Blood Urea Nitrogen 12 mg/dL (8-24); Bun/Creatinine Ratio 15.3 (12.0-20.0); CO2, Blood 26 mmol/L (21-32); Chloride, Blood 108 mmol/L (98-108); Creatinine, Blood 0.79 mg/dL (0.40-1.00); Globulin, Blood 3.2 g/dL (2.2-4.0); Glomerular Filtration Rate >60 (60-); Glucose, Blood 110 mg/dL (70-99); Potassium, Blood 4.4 mmol/L (3.5-5.5); Sodium, Blood 139 mmol/L (136-145); Total Protein, Blood 6.4 g/dL (6.4-8.2); Troponin I <0.015 ng/mL (0.000-0.040)
[2019-06-20 15:01] LABS: BAND PERCENT MAN 3 % (0-8); BASOPHILS ABSOLUTE MAN 0.17 K/mm3 (0.00-0.23); BASOPHILS PERCENT MAN 2 % (0-2); EOSINOPHILS PERCENT MAN 0 % (0-6); LYMPHOCYTES ABSOLUTE MAN 0.77 K/mm3 (0.84-5.20); LYMPHOCYTES PERCENT MAN 9 % (21-46); MONOCYTES ABSOLUTE MAN 0.34 K/mm3 (0.16-1.47); MONOCYTES PERCENT MAN 4 % (4-13); SEG NEUTROPHILS PERCENT MAN 82 % (41-73); TOTAL CELLS COUNTED 100
== END 2019-06-20 15:41 | disposition home or self-care (01) ==
LOC: ER 13:55
PROVIDERS: Emergency Medicine
DX: I73.00 Raynaud's syndrome without gangrene (principal); M54.6 Pain in thoracic spine; G89.29 Other chronic pain; M79.7 Fibromyalgia; K21.9 Gastro-esophageal reflux disease without esophagitis; Z88.6 Allergy status to analgesic agent; Z79.899 Other long term (current) drug therapy; Z79.82 Long term (current) use of aspirin; Z87.891 Personal history of nicotine dependence
CPT/HCPCS: 36415; 71046; 80053; 84484; 85025; 93005; 93010; 99284-25

== ENCOUNTER 2019-06-24 10:48 | Emergency (ER) | payer MEDICARE ==
[~2019-06-24 10:48] MED LIST changes: +ATOR80 PO
== END 2019-06-24 13:10 | disposition left against medical advice (07) ==
LOC: ER 10:48
DX: Z53.21 Procedure and treatment not carried out due to patient leaving prior to being seen by health care provider (principal)

== ENCOUNTER 2019-07-02 14:26 | Day surgery (SDC) | payer MEDICARE ==
[~2019-07-02] VITALS: Ht 152.4 cm; Wt 51.9 kg
--- NOTE | 2019-07-02 16:30 | NUR ---
LATE ENTRY 1521 EMERY SMITH WALKED PT FROM PREOP TO LOCATED WITHIN [facility]. WHEN THEY ENTERED, LUIS STATED, "THE PT REALLY DOESN'T UNDERSTAND WHY SHE IS HERE." PT A&O X4. WHEN ASKED WHAT SHE WAS HERE FOR TODAY, PT STATED "I'M NOT SURE, THIS IS ALL SO CONFUSING." PT IS NOT CONFUSED DUE TO MENTION ISSUES, BUT TO WHY AND WHAT TEST WAS ORDERDED. PT STATED SHE "HAD GALSTONE PAIN AWHILE BACK I THOUGHT THAT'S WHAT IT MUST BE." WHEN RN EXPLAINED SHE WAS GETTING AN UPPER SCOPE, SHE DIDN'T THINK "IT WAS NECESSARY BECAUSE IT WASN'T HER THROAT THAT HURT." PT AND RN DECIDED TO GET HER READY AND CLARIFY EVERYTHING WITH DR. ESCOBEDO WHEN HE ARRIVES.
--- NOTE | 2019-07-02 16:36 | NUR ---
LATE ENTRY 1551 DR. ESCOBEDO CONSULTING WITH PT. PT STATES TO DR. ESCOBEDO SHE "DOESNT UNDERSTAND WHY SHE IS HAVING THIS TEST." DR. ESCOBEDO STATED HIS OFFICE WAS CONTACTED BY "SOMEONE" SAYING SHE HAD SEVERE PAIN. PT STATED "SHE DID ABOUT 2 WEEKS AGO, BUT NOW IT IS GONE. SHE IS IN NO PAIN, AND THE PAIN WAS MORE IN HER STOMACH, NOT HER THROAT." DR. ESCOBEDO STATED DUE TO HER HX OF ESOPHAGEAL CANCER, THAT IS A POSSIBLE REASON TO SCOPE BECAUSE THE SCOPE CAN LOOK AT THE THROAT AND INTO PART OF THE STOMACH THAT MAY BE BOTHERING HER. DR. ESCOBEDO IS HAPPY TO CONTINUE WITH THE PROCEDURE IF SHE WOULD LIKE, BUT OFFERS HER THE CHOICE TO NOT PROCEED IF SHE DOES NOT WANT TO. PT STATES "SINCE I AM HERE AND WE'VE GONE THROUGH THIS, WE MAY WELL DO IT."
--- NOTE | 2019-07-02 16:43 | NUR ---
LATE ENTRY 1555 ENDO CREW BEGINS TO TAKE PT INTO PROCEDURE ROOM VIA ANGIERNOELLE, PT AGAIN STATES, "I'M STILL CONFUSED AND NOT SURE ABOUT THIS." RN ASKS THE PT AGAIN IF SHE STILL WANTS TO PROCEED AND RN STATES SHE WANTS PT TO BE 100% SURE. PT STATES, "IF IT'S NOT TOO LATE I'D LIKE TO CHANGE MY MIND AND NOT DO IT." PT REASSURED IT IS HER DECISION AND PROCEDURE IS CANCELED.
--- NOTE | 2019-07-02 16:46 | NUR ---
LATE ENTRY 1600 PT SUCCESSFULLY D/C'D. PT WALKED TO BILLING DUE TO HER CONCERNS OF BEING REFUNDED FOR THE FEE SHE PAID AT [facility]. BILLING ABLE TO REFUND THE CHARGE. PT STATES SATISFACTION OF CARE.
== END 2019-07-02 22:52 | disposition home or self-care (01) ==
LOC: ORSCMMR 14:26 → ORD 16:00 → ORSCMMR 22:52
DX: R10.13 Epigastric pain (principal); Z53.9 Procedure and treatment not carried out, unspecified reason
CPT/HCPCS: J2704; J7120; U0002

== ENCOUNTER 2019-07-26 09:59 | Emergency (ER) | payer MEDICARE, OTHER ==
[~2019-07-26] VITALS: Ht 152.4 cm; Wt 49.0 kg
[~2019-07-26 09:59] MED LIST changes: +ASPIR 8181 MG PO; -LO-DOSE ASPIRIN81 MG PO
[2019-07-26] MEDS ORDERED: TRAM50 PO (10:40)
[2019-07-26] MEDS ORDERED: LIPITOR80 MG PO (10:41)
[2019-07-26] MEDS ORDERED: OLOPATADINE HCL5 ML (10:43)
[2019-07-26 11:13] LABS: Bilirubin, Urine Neg (Neg); Blood, Urine 5+ (Neg); Color, Urine Amber (P-Yellow); Glucose Qualitative, Urine Neg (Neg); Ketones, Urine Neg (Neg); Leukocyte Esterase, Urine 1+ (Neg); Nitrite, Urine Neg (Neg); Protein, Urine 3+ (Neg); Urobilinogen, Urine 1+ (Normal)
[2019-07-26 11:20] LABS: BASOPHILS ABSOLUTE AUTO 0.09 K/mm3 (0.00-0.23); BASOPHILS PERCENT AUTO 1 % (0-2); EOSINOPHILS ABSOLUTE AUTO 0.09 K/mm3 (0.00-0.68); EOSINOPHILS PERCENT AUTO 1 % (0-6); Hematocrit 35.3 % (33.0-51.0); Hemoglobin 11.8 g/dL (11.5-16.0); IMMATURE GRAN ABSOLUTE AUTO 0.07 K/mm3 (0.00-0.10); IMMATURE GRAN PERCENT AUTO 1 % (0-1); LYMPHOCYTES ABSOLUTE AUTO 1.15 K/mm3 (0.84-5.20); LYMPHOCYTES PERCENT AUTO 9 % (21-46); MONOCYTES ABSOLUTE AUTO 1.47 K/mm3 (0.16-1.47); MONOCYTES PERCENT AUTO 11 % (4-13); Mean Corpuscular HGB 33.9 pg (26.0-34.0); Mean Corpuscular HGB Conc 33.4 g/dL (31.5-36.5); Mean Corpuscular Volume 101 fL (80-100); Mean Platelet Volume 10.3 fL (9.1-12.4); NEUTROPHILS ABSOLUTE AUTO 10.23 K/mm3 (1.96-9.15); NEUTROPHILS PERCENT AUTO 78 % (41-73); Platelet Count 390 K/mm3 (150-400); RDW Coefficient Variation 14.8 % (11.7-14.2); RDW Standard Deviation 53.9 fL (35.1-46.3); Red Blood Cell Count 3.48 M/mm3 (3.80-5.20)
[2019-07-26 11:25] LABS: Appearance, Urine Hazy (Clear)
[2019-07-26 11:28] LABS: Amorphous Mod (0-Heavy); Bacteria Mod /hpf; Mucus Light (0-Heavy); Squamous Epithelial Cells Rare /hpf (Few)
[2019-07-26 11:29] LABS: Granular Casts 50-100 /lpf (0)
[2019-07-26 11:39] LABS: International Normalized Ratio 0.99; Prothrombin Time Results 10.6 Sec (9.7-11.5)
[2019-07-26 11:45] LABS: Alanine Aminotransfer (ALT/SGP 941 U/L (12-78); Albumin, Blood 2.5 g/dL (3.4-5.0); Albumin/Globulin Ratio 0.5 (0.8-1.8); Anion Gap 7 mmol/L (6-16); Bilirubin, Total 0.8 mg/dL (0.1-1.0); Blood Urea Nitrogen 20 mg/dL (8-24); CO2, Blood 26 mmol/L (21-32); Chloride, Blood 103 mmol/L (98-108); Creatinine, Blood 0.56 mg/dL (0.40-1.00); Globulin, Blood 5.2 g/dL (2.2-4.0); Glomerular Filtration Rate >60 (60-); Glucose, Blood 90 mg/dL (70-99); Potassium, Blood 4.9 mmol/L (3.5-5.5); Sodium, Blood 136 mmol/L (136-145); Total Protein, Blood 7.7 g/dL (6.4-8.2)
[2019-07-26 12:00] LABS: Alk Phos 1681 U/L (50-136); Aspartate Aminotrans (AST/SGOT 2116 U/L (12-37)
[2019-07-26 12:01] LABS: Acetaminophen, Random <2.0 ug/mL (10.0-30.0)
[2019-07-26] MEDS ORDERED: TRAMADOL HCL E100 M2 PO (13:03)
[2019-07-27 07:10] LABS: HBSAG SCREEN Negative (Negative); HEP A AB, IGM Negative (Negative); HEP B CORE AB, IGM Negative (Negative); HEP C VIRUS AB <0.1 (0.0-0.9)
[2019-07-28] MEDS ORDERED: SYNTHROID75 MCG PO (12:19)
== END 2019-07-26 13:56 | disposition home or self-care (01) ==
LOC: ER 09:59
PROVIDERS: Physician Assistant
DX: R74.8 Abnormal levels of other serum enzymes (principal); R10.9 Unspecified abdominal pain; Z88.6 Allergy status to analgesic agent; Z79.899 Other long term (current) drug therapy; Z79.82 Long term (current) use of aspirin; K21.9 Gastro-esophageal reflux disease without esophagitis; M79.7 Fibromyalgia; M06.9 Rheumatoid arthritis, unspecified; Z87.891 Personal history of nicotine dependence
CPT/HCPCS: 36415; 76705; 80053; 80074; 81001; 85025; 85610; 87086; 99284-25; G0480

== ENCOUNTER → 2020-03-23 | Outpatient (CLI) | payer MEDICARE, OTHER ==
[~2020-03-23] MED LIST changes: +BISA10S PR; +CHOLP PO; +Crestor40 MG PO; +DONEPEZIL HCL5 M2 PO; +HYDR1TAB94 PO; +LEVFLO500 PO; +LEVOTHYROXINE100 MC2 PO; +LIPITOR80 MG PO; +METR500 PO; +MIRALAX17 GM PO; +Norco 5-325 Ta1 EACH PO; +OLOPATADINE HCL5 ML; +Prednisone10 MG PO; +SYNTHROID75 MCG PO; +TRAM50 PO; +TRAMADOL HCL E100 M2 PO; +VOLTAREN ARTHRI20 GM TOP; +Vancocin HCl125 MG PO
[2020-03-23 16:56] LABS: Bun/Creatinine Ratio 25.6 (12.0-20.0); Calcium, Blood 8.8 mg/dL (8.5-10.1); Creatinine, Blood 1.17 mg/dL (0.40-1.00)
== END | disposition home or self-care (01) ==
LOC: LAB SHORT 14:53 → LAB 14:53
PROVIDERS: Registered Nurse Oncology
DX: C15.9 Malignant neoplasm of esophagus, unspecified (principal); M81.0 Age-related osteoporosis without current pathological fracture
CPT/HCPCS: 80048

== ENCOUNTER 2020-05-27 07:58 | Day surgery (SDC) | payer MEDICARE, OTHER ==
[~2020-05-27] VITALS: Ht 152.4 cm; Wt 60.0 kg
[~2020-05-27 07:58] MED LIST changes: -DONEPEZIL HCL5 M2 PO; -LEVFLO500 PO; -METR500 PO; -Norco 5-325 Ta1 EACH PO; -VOLTAREN ARTHRI20 GM TOP; -Vancocin HCl125 MG PO
--- NOTE | 2020-05-27 08:29 | NUR ---
05/27/20 0829 LAWRENCE LEA PT UNSURE ABOUT LAST BOWEL MOVEMENT
--- NOTE | 2020-05-27 14:36 | NUR ---
05/27/20 1436 Mayra Corcoran LATE ENTRY---DURING PROCEDURE THE IV IN THE RIGHT HAND INFILTRATED. DR CONTINUED PROCEDURE AND IV ATTEMPT IN RIGHT AC AND THEN SUCCESSFUL IV IN LEFT HAND. PROCEDURE CONTINUED AND PATIENT DID NOT WAKE UP AT ALL DURING THIS ENTIRE PROCESS. DURING THE REMOVAL OF APPENDACEAL ORIFICE POLYP 14.5CC OF SALINE AND THEN 1CC OF ELEVIEW WERE INJECTED TO ASSIST WITH REMOVAL OF POLYP. PATIENT TOLERATED THIS FINE. PATIENT DID HAVE AN EPISODE OF WRETCHING AND ZOFRAN WAS GIVEN PER MD ORDER AND PATIENT DID NOT ACTUALLY VOMIT.
== END 2020-05-27 09:58 | disposition home or self-care (01) ==
LOC: ORSCSDS 07:58
PROVIDERS: Internal Medicine Gastroenterology
PROC: 0DBK8ZX Excision of Ascending Colon, Via Natural or Artificial Opening Endoscopic, Diagnostic (ICD-10-PCS; principal; 2020-05-27 09:00)
PROC: 0DBH8ZX Excision of Cecum, Via Natural or Artificial Opening Endoscopic, Diagnostic (ICD-10-PCS; principal; 2020-05-27 09:00)
DX: Z12.11 Encounter for screening for malignant neoplasm of colon (principal); Z86.010 Personal history of colon polyps; Z80.0 Family history of malignant neoplasm of digestive organs; D12.0 Benign neoplasm of cecum; D12.2 Benign neoplasm of ascending colon; K57.30 Diverticulosis of large intestine without perforation or abscess without bleeding; K64.4 Residual hemorrhoidal skin tags; E78.5 Hyperlipidemia, unspecified; E03.9 Hypothyroidism, unspecified; K21.9 Gastro-esophageal reflux disease without esophagitis; Z87.891 Personal history of nicotine dependence; Z79.82 Long term (current) use of aspirin; Z79.899 Other long term (current) drug therapy
CPT/HCPCS: 88305; J2405; J2704; J7120

== ENCOUNTER 2020-07-12 07:30 | Inpatient (IN) | payer MEDICARE, OTHER ==
[~2020-07-12] VITALS: Ht 152.4 cm; Wt 62.9 kg
--- NOTE | 2020-07-28 06:52 | NUR ---
History, Chart, Medications and Allergies reviewed before start of procedure. Lungs clear T/O to Auscultation. Patient confirms NPO status and agrees with scheduled surgery. Spiritual care visit conducted. I provided companionship, emotional support and prayer. Patient and or family unit engaged well and verbalized appreciation. PT IS SOMEWHAT CONFUSED TO WHAT KIND OF SURGERY SHE IS HAVING. I HAVE BEEN THROUGH GREAT DETAIL DISCUSSING WITH PT WHAT THE PLAN WAS FOR TODAY AND WHAT THE PROCEDURE WAS FOR. PT STATES "I THOUGHT IT WAS LIKE THE ONES I HAD BEFORE". PT STATES "WELL IF IT NEEDS TO BE DONE" - SPOKE WITH PT AT HER REQUEST TO INFORM HIM WHAT THE PLAN WAS. THAT PT WOULD PROBABLY NOT BE DISCHARGED TOMORROW AND PROVIDED HIM WITH THE ANTICIPATED LENGTH OF SURGERY. PT GIVEN REASSURANCE AND INFORMED THAT DR. PINEDA WOULD SEE HER PRIOR TO THE SURGERY TO ANSWER ANY QUESTIONS. ALSO INSTRUCTED FAMILY OF THE HOSPITAL VISITING HOURS.
--- NOTE | 2020-07-28 07:08 | NUR ---
PT IS A POOR HISTORIAN. PT IS UNABLE TO TELL ME IF SHE TOOK ANTIBIOTICS LEADING UP TO THE PROCEDURE AND IF SHE STOPPED HER ASPIRIN. PT STATES THAT PT DID DO EVERYTHING THAT WAS ON THE SURGICAL PREOP INSTRUCTIONS. UNABLE TO UPDATED PT MEDICATIONS DUE TO HER POOR MEMORY. PT IS ALERT AND ORIENTED TO SELF BUT IS UNABLE TO TELL ME WHO THE PRESIDENT IS OR WHAT IS THE CURRENT YEAR. SPOKE WITH A SECOND TIME. HE STATES HE THINKS IT HAS BEEN OVER A WEEK SINCE PT HAD HER ASPIRIN. ALSO THAT HER REGULAR MEDICATIONS ARE PROVIDED IN A BOX AND PT JUST TAKE WHATEVER IS IN THE BOX AT THE INSTRUCTED TIME OF DAY. VERBAL CONSENT FROM TO FOR BLOOD CONSENT WELL DISCUSSED IT WITH THE PATIENT.
--- NOTE | 2020-07-28 07:23 | NUR ---
PHONE CONSENT WITH DR. BO AND PT . DR. PINEDA TO BEDSIDE TO DISCUSS WITH PATIENT THE PLAN FOR SURGERY. ALL QUESTIONS ANSWERED.
--- NOTE | 2020-07-28 07:40 | NUR ---
METOPROLOL PULLED FROM REC[facility]ERY [facility] FOR DR. BO TO GIVEN IN SURGERY.
--- NOTE | 2020-07-28 08:39 | NUR ---
07/28/20 0839 Yadira Bejarano SARMIENTO CATHETER INSERTED BY BEN FARAH.
--- NOTE | 2020-07-28 13:30 | NUR ---
pt arrived to the room on stretcher from PACU, post op vs commenced and stable. pt c/o "something in my eye". Eye flushed with 10 ml NS. Inspection of eye shows no foreign body. provided pt with wet washcloth to place over eye. pt denies any abd pain at this time, no N/V. pt provided with ice chips/water.
--- NOTE | 2020-07-29 05:25 | NUR ---
SHIFT SUMMARY POD1 R HEMICOLECTOMY WITH DR. PINEDA. PT'S LAP SITE ARE CDI. REPORTS MINIMAL ABD PAIN AND MORE PAIN IN HER NECK AND DISCOFORT. KPAD IS IN PLACE AND ADMINSITERED 0.5MG DILAUDID AND 1 NORCO. PT REPORT FEELING UNCOMFORTABLE AND UNABLE TO GET ENOUGHT SLEEP LAST NIGHT. REPOSITIONED PATIENT FOR COMFORT BUT SHE WAS DRY HIEVING AFTER REPOSITIONING. ZOFRAN PO WAS GIVEN X1. SARMIENTO CATH INTACT AND PATENT. PT TOLERATING LIQUID DIET, WILL ADVANCE TO FULL DIET FOR BREAKFAST. CALL LIGHT WITHIN REACH. WILL PROVIDE REPORT TO ONCOMING NURSE.
--- NOTE | 2020-07-29 06:04 | NUR ---
PT EXPERIENCING DRY HEAVING EPISODES AGAIN (3RD TIME).
[2020-07-29 07:16] LABS: Hematocrit 35.3 % (33.0-51.0); Hemoglobin 11.7 g/dL (11.5-16.0); Mean Corpuscular HGB 33.7 pg (26.0-34.0); Mean Corpuscular HGB Conc 33.1 g/dL (31.5-36.5); Mean Corpuscular Volume 102 fL (80-100); Mean Platelet Volume 9.6 fL (9.1-12.4); Platelet Count 217 K/mm3 (150-400); RDW Coefficient Variation 14.6 % (11.7-14.2); RDW Standard Deviation 54.5 fL (35.1-46.3); Red Blood Cell Count 3.47 M/mm3 (3.80-5.20)
[2020-07-29 07:45] LABS: Anion Gap 4 mmol/L (6-16); Blood Urea Nitrogen 14 mg/dL (8-24); CO2, Blood 25 mmol/L (21-32); Calcium, Blood 7.8 mg/dL (8.5-10.1); Chloride, Blood 105 mmol/L (98-108); Creatinine, Blood 0.74 mg/dL (0.40-1.00); Glomerular Filtration Rate >60 (60-); Glucose, Blood 111 mg/dL (70-99); Magnesium, Blood 2.2 mg/dL (1.6-2.4); Potassium, Blood 4.2 mmol/L (3.5-5.5); Sodium, Blood 134 mmol/L (136-145)
--- NOTE | 2020-07-29 18:39 | NUR ---
SHIFT SUMMARY POD 1 ILEOCECETOMY AA0X4, PT HAS HAD INTERMITTENT NAUSEA, ZOFRAN GIVEN X1, DENIED NEED FOR MEDICATION THIS EVENING AND REQUESTED JUST WATER. HAS BEEN TOLERATING PO WELL PREVIOUSLY. PT WALKED WITH THERAPY TODAY TOLERATED WITH SOME SOB WITH EXERTION, RECOVERS QUICKLY ONCE SEATED. LAP SITES CDI. PLAN IS TO CONTINUE WITH PAIN MANAGEMENT AND ENCOURAGE AMBULATION. PT HAS BEEN IMPULSIVE AND TAKING SELF TO RESTROOM, SHE REPORTS MULTIPLE VOIDS BUT EMPTIES HAT WITHOUT MEASUREMENT.
[2020-07-29] MEDS ORDERED: TRAM50 PO (22:38)
[2020-07-29] MEDS ORDERED: VOLTAREN ARTHRI20 GM TOP (22:40)
--- NOTE | 2020-07-30 04:34 | NUR ---
SHIFT SUMMARY PT RESTED WELL T/O SHIFT. HAS DENIED NEEDING PAIN MEDICATION UNTIL NOW. 1 NORCO GIVEN FOR ABD PAIN. LAP SITES TO ABD REMAIN CDI. PT HAVING MULTIPLE LOOSE STOOLS THIS SHIFT. INDEP TO THE RESTROOM AND STEADY ON FEET. PT HAS BEEN ALERT AND ORIENTED MOST OF SHIFT, BUT DID GET CONFUSED ONCE. EASILY REORIENTED. USES CALL LIGHT APPROPRIATELY.
[2020-07-30 04:38] LABS: Hematocrit 37.1 % (33.0-51.0); Hemoglobin 12.2 g/dL (11.5-16.0); Mean Corpuscular HGB 33.3 pg (26.0-34.0); Mean Corpuscular HGB Conc 32.9 g/dL (31.5-36.5); Mean Corpuscular Volume 101 fL (80-100); Mean Platelet Volume 9.8 fL (9.1-12.4); Platelet Count 232 K/mm3 (150-400); RDW Coefficient Variation 14.7 % (11.7-14.2); RDW Standard Deviation 55.4 fL (35.1-46.3); Red Blood Cell Count 3.66 M/mm3 (3.80-5.20); White Blood Cell Count 9.33 K/mm3 (4.00-11.30)
[2020-07-30 05:21] LABS: Alanine Aminotransfer (ALT/SGP 75 U/L (12-78); Albumin/Globulin Ratio 0.8 (0.8-1.8); Alk Phos 74 U/L (50-136); Anion Gap 4 mmol/L (6-16); Aspartate Aminotrans (AST/SGOT 80 U/L (12-37); Bilirubin, Total 0.4 mg/dL (0.1-1.0); Blood Urea Nitrogen 12 mg/dL (8-24); Bun/Creatinine Ratio 16.2 (12.0-20.0); CO2, Blood 27 mmol/L (21-32); Calcium, Blood 8.3 mg/dL (8.5-10.1); Chloride, Blood 107 mmol/L (98-108); Creatinine, Blood 0.74 mg/dL (0.40-1.00); Globulin, Blood 3.6 g/dL (2.2-4.0); Glomerular Filtration Rate >60 (60-); Glucose, Blood 91 mg/dL (70-99); Potassium, Blood 4.4 mmol/L (3.5-5.5); Sodium, Blood 138 mmol/L (136-145); Total Protein, Blood 6.6 g/dL (6.4-8.2)
--- NOTE | 2020-07-30 10:27 | NUR ---
PT REPORTS SOB WITH EXERTION AND WITH EATING, SHE REPORTS IT HAS BEEN INCREASING OF LATE. SATS REMAIN GREATER THAN 92% AND SHE RECOVERS QUICKLY ONCE SITTING OR LAYING IN BED.
[2020-07-30] MEDS ORDERED: ACET325 PO (14:12)
[2020-07-30] MEDS ORDERED: Norco 5-325 Ta1 EACH PO (14:14)
--- NOTE | 2020-07-30 15:15 | NUR ---
DISCHARGE PT LEFT VIA WHEELCHAIR WITH SON AT 1440. DISCHARGE INSTRUCTIONS GONE OVER WITH PATIENT AND SON. PRESCRIPTION SENT WITH PATIENT. IV REMOVED PRIOR TO DISCHARGE. PT REPORTS PAIN TOLERABLE AT THIS TIME. PASSING GAS AND HAD BM THIS DAY. TOLERATING PO WELL. DECLINED FURTHER QUESTIONS. PT AMBULATING WELL DURING SHIFT. IMPULSIVE AT TIMES.
--- NOTE | 2020-07-30 16:37 | NUR ---
ADMIT:07/28/20 DISCHARGE: 07/30/20 DX: Admitted for ileocecectomy for sessile colonic polyp CC: [email or web address] ADMIT: 07/28/19 DISCHARGE: 08/05/19 ADMIT: 06/05/18 DISCHARGE: 06/09/18 GINGER CALL: pt at home (1wk with PCP) RESIDENCE: Home CAREGIVER: gt davis, daughter in law, Jarrett Talavera, Spouse / Partner, DX: HTN, cardiac valve disease, CHF, GERD, mild cognitive disorder, see list DME: none CCM: none HOME HEALTH: [facility]- 2013 SUMMARY: 07/30/20- per chart review with Dr. Brown, pt is stable to d/c home with home health. Met with pt who reports that prior to coming into the hospital, she was independent and had no caregiver services. She previously had home health with [facility]. Pt lives with her and their son lives near by. Their home is single story with working utilities and no steps into the home. Pt reports that her son or take her to her appts and help greens picker her medications, she no longer drives. Pt does not have POA and Next of Kin is , Jarrett Talavera and son, Teto Ibrahim. Pt states that she has no DME needs. Pt states that she and her port traffic manager her medications and her pharmacy is [facility]. Pt has declined home health services and only wants someone who can come clean her home. She reports that she has been paying into an extended caregiver insurance policy and she will have her children call them to find out how to use the policy and get someone to come into the home to help with her needs. Discussed GINEGR and pt acknowledged understanding. -donavan
== END 2020-07-30 14:52 | disposition home health service (06) | DRG 330 ==
LOC: SURS 07-28 06:14
PROVIDERS: Student in an Organized Health Care Education/Training Program; ADMIT Surgery
PROC: 8E0W4CZ Robotic Assisted Procedure of Trunk Region, Percutaneous Endoscopic Approach (ICD-10-PCS; 2020-07-28)
PROC: 0DTF4ZZ Resection of Right Large Intestine, Percutaneous Endoscopic Approach (ICD-10-PCS; principal; 2020-07-28 07:30)
DX: D12.0 Benign neoplasm of cecum (principal); I50.32 Chronic diastolic (congestive) heart failure; I11.0 Hypertensive heart disease with heart failure; G31.84 Mild cognitive impairment of uncertain or unknown etiology; E03.9 Hypothyroidism, unspecified; E78.5 Hyperlipidemia, unspecified; M05.842 Other rheumatoid arthritis with rheumatoid factor of left hand; M05.841 Other rheumatoid arthritis with rheumatoid factor of right hand; K21.9 Gastro-esophageal reflux disease without esophagitis; I35.0 Nonrheumatic aortic (valve) stenosis; Z85.01 Personal history of malignant neoplasm of esophagus; Z98.890 Other specified postprocedural states; Z90.710 Acquired absence of both cervix and uterus; Z90.89 Acquired absence of other organs; Z87.891 Personal history of nicotine dependence; Z88.8 Allergy status to other drugs, medicaments and biological substances; Z79.82 Long term (current) use of aspirin; Z79.899 Other long term (current) drug therapy; Z92.21 Personal history of antineoplastic chemotherapy; Z92.3 Personal history of irradiation
CPT/HCPCS: 36415; 80048; 80053; 83735; 85027; 86850; 86900; 86901; 88307; 94760; 97116; 97162; 97166; 97530; A9270; J0694; J1100; J1170; J1650; J2370; J2405; J2704; J3010; J7120

== ENCOUNTER 2020-08-11 14:49 | Inpatient (IN) | payer MEDICARE, OTHER ==
[~2020-08-11] VITALS: Ht 152.4 cm; Wt 60.7 kg
[~2020-08-11 14:49] MED LIST changes: +Norco 5-325 Ta1 EACH PO; +VOLTAREN ARTHRI20 GM TOP
[2020-08-11 15:42] LABS: Alanine Aminotransfer (ALT/SGP 26 U/L (12-78); Albumin, Blood 3.1 g/dL (3.4-5.0); Albumin/Globulin Ratio 0.7 (0.8-1.8); Alk Phos 135 U/L (50-136); Anion Gap 8 mmol/L (6-16); Aspartate Aminotrans (AST/SGOT 24 U/L (12-37); BASOPHILS ABSOLUTE AUTO 0.06 K/mm3 (0.00-0.23); BASOPHILS PERCENT AUTO 0 % (0-2); Bilirubin, Total 0.4 mg/dL (0.1-1.0); Blood Urea Nitrogen 16 mg/dL (8-24); Bun/Creatinine Ratio 19.2 (12.0-20.0); CO2, Blood 23 mmol/L (21-32); Calcium, Blood 8.8 mg/dL (8.5-10.1); Chloride, Blood 104 mmol/L (98-108); Creatinine, Blood 0.83 mg/dL (0.40-1.00); EOSINOPHILS ABSOLUTE AUTO 0.01 K/mm3 (0.00-0.68); EOSINOPHILS PERCENT AUTO 0 % (0-6); Globulin, Blood 4.4 g/dL (2.2-4.0); Glomerular Filtration Rate >60 (60-); Glucose, Blood 174 mg/dL (70-99); Hematocrit 39.5 % (33.0-51.0); Hemoglobin 13.3 g/dL (11.5-16.0); IMMATURE GRAN ABSOLUTE AUTO 0.13 K/mm3 (0.00-0.10); IMMATURE GRAN PERCENT AUTO 1 % (0-1); LYMPHOCYTES ABSOLUTE AUTO 0.97 K/mm3 (0.84-5.20); LYMPHOCYTES PERCENT AUTO 5 % (21-46); MONOCYTES ABSOLUTE AUTO 0.92 K/mm3 (0.16-1.47); MONOCYTES PERCENT AUTO 4 % (4-13); Mean Corpuscular HGB 33.8 pg (26.0-34.0); Mean Corpuscular HGB Conc 33.7 g/dL (31.5-36.5); Mean Corpuscular Volume 101 fL (80-100); Mean Platelet Volume 9.5 fL (9.1-12.4); NEUTROPHILS PERCENT AUTO 90 % (41-73); Platelet Count 377 K/mm3 (150-400); Potassium, Blood 4.1 mmol/L (3.5-5.5); RDW Standard Deviation 52.4 fL (35.1-46.3); Red Blood Cell Count 3.93 M/mm3 (3.80-5.20); Sodium, Blood 135 mmol/L (136-145); Total Protein, Blood 7.5 g/dL (6.4-8.2); White Blood Cell Count 20.79 K/mm3 (4.00-11.30)
[2020-08-11] MEDS ORDERED: DONEPEZIL HCL5 M2 PO (17:34)
[2020-08-11 17:55] LABS: Source, Urine Clean Catch
[2020-08-11 18:00] LABS: Appearance, Urine Clear (Clear); Bilirubin, Urine Neg (Neg); Blood, Urine 1+ (Neg); Color, Urine Yellow (P-Yellow); Glucose Qualitative, Urine Neg (Neg); Ketones, Urine 2+ (Neg); Leukocyte Esterase, Urine 1+ (Neg); Nitrite, Urine Neg (Neg); Protein, Urine 2+ (Neg); Specific Gravity, Urine 1.025 (1.003-1.022); Urobilinogen, Urine NORM (Normal)
[2020-08-11 18:25] LABS: White Blood Cells, Urine 25-50 /hpf (0-5)
[2020-08-11 18:26] LABS: Bacteria Many /hpf; Mucus Light (0-Heavy); Squamous Epithelial Cells Mod /hpf (Few)
[2020-08-12 01:32] LABS: C DIFFICILE DNA POSITIVE (Negative)
[2020-08-12 06:24] LABS: BASOPHILS ABSOLUTE AUTO 0.03 K/mm3 (0.00-0.23); BASOPHILS PERCENT AUTO 0 % (0-2); EOSINOPHILS ABSOLUTE AUTO 0.02 K/mm3 (0.00-0.68); EOSINOPHILS PERCENT AUTO 0 % (0-6); Hematocrit 35.9 % (33.0-51.0); Hemoglobin 12.2 g/dL (11.5-16.0); IMMATURE GRAN ABSOLUTE AUTO 0.07 K/mm3 (0.00-0.10); IMMATURE GRAN PERCENT AUTO 1 % (0-1); LYMPHOCYTES PERCENT AUTO 7 % (21-46); MONOCYTES PERCENT AUTO 7 % (4-13); Mean Corpuscular HGB 34.1 pg (26.0-34.0); Mean Corpuscular Volume 100 fL (80-100); Mean Platelet Volume 9.3 fL (9.1-12.4); NEUTROPHILS ABSOLUTE AUTO 11.76 K/mm3 (1.96-9.15); NEUTROPHILS PERCENT AUTO 85 % (41-73); Platelet Count 328 K/mm3 (150-400); RDW Coefficient Variation 13.9 % (11.7-14.2); RDW Standard Deviation 50.8 fL (35.1-46.3); Red Blood Cell Count 3.58 M/mm3 (3.80-5.20); White Blood Cell Count 13.78 K/mm3 (4.00-11.30)
[2020-08-12 07:10] LABS: Alanine Aminotransfer (ALT/SGP 21 U/L (12-78); Albumin, Blood 2.7 g/dL (3.4-5.0); Albumin/Globulin Ratio 0.7 (0.8-1.8); Alk Phos 148 U/L (50-136); Anion Gap 6 mmol/L (6-16); Aspartate Aminotrans (AST/SGOT 20 U/L (12-37); Bilirubin, Total 0.3 mg/dL (0.1-1.0); Blood Urea Nitrogen 14 mg/dL (8-24); Bun/Creatinine Ratio 17.5 (12.0-20.0); CO2, Blood 24 mmol/L (21-32); Calcium, Blood 8.1 mg/dL (8.5-10.1); Chloride, Blood 106 mmol/L (98-108); Globulin, Blood 3.8 g/dL (2.2-4.0); Glomerular Filtration Rate >60 (60-); Glucose, Blood 118 mg/dL (70-99); Sodium, Blood 136 mmol/L (136-145); Total Protein, Blood 6.5 g/dL (6.4-8.2)
--- NOTE | 2020-08-12 12:28 | NUR ---
PT ARRIVED TO THE MEDICAL FLOOR FROM THE ER VIA GEMINI SMITH, PLEASANT AND COOPERATIVE, THE PT WAS ABLE TO AMBULATE WITH MINIMAL ASSISTANCE TO THE BED, THE PT APPEARS TO BE BREATHING EASILY ON RA AT THIS TIME, PT REPORTS HEAD ACHE WILL REVIEW MED ORDERS TO MEDICATE, THE PT WAS ORINETED TO THE ROOM LAYOUT AND CALL SYSTEM, CALL LIGHT IN REACH
[2020-08-12] MEDS ORDERED: LEVFLO500 PO (16:16)
[2020-08-12] MEDS ORDERED: METR500 PO (16:16)
[2020-08-12] MEDS ORDERED: Vancocin HCl125 MG PO (16:18)
--- NOTE | 2020-08-12 16:31 | NUR ---
Update 08/12/2020: Per chart review with Dr. Rivas, Pt. appropriate for discharge. Discussed discharge planning with pt. She states that she has adequate support at home with and family including son. Pt. was given caregiver information at time of last hospital discharge. She still has the info and is considering, but not ready to commit to hiring support. She again declines HH. I advised pt. that it is important that she follow-up with Dr. Nunez. After her last hospital discharge, pt. did not answer phone or return calls to schedule a hospital F/U appointment. I scheduled her for at hospital F/U appointment with Dr. Nunez on 08/17/20 at 4:20pm. Sent note to Dr. Nunez's MA to ensure that she reach out to pt. if she does not come in for her F/U appointment. Pt. denied need for DME. Denied concerns with mobility or safety at home. She was given [facility] direct triage line to call with any concerns.
--- NOTE | 2020-08-12 17:55 | NUR ---
pt discharged THE PT VERBALIZED UNDERSTANDING OF THE DC INSTRUCTIONS, THE PTS PRESCRIPTIONS WERE FAXED TO [facility] REQUESTED, THE PT WAS RECOMMENDED TO START WITH A LIQUID OR SOFT DIET AND INCREASE HER INTAKE SLOWLY TOLERATED, A FOLLOW UP APPOINTMENT WAS MADE BEFORE THE PT DISCHARGED, THE PT WAS TRANSFERED VIA WHEELCHAIR ACCOMPANIED BY THE SET UP INSPECTOR AND HER SON, PT WAS A/OX3
== END 2020-08-12 17:37 | disposition home or self-care (01) | DRG 372 ==
LOC: ER 14:49 → ERHOLD 20:42 → MEDS 08-12 12:05
PROVIDERS: Emergency Medicine; Physician Assistant; ADMIT Internal Medicine
DX: A04.72 Enterocolitis due to Clostridium difficile, not specified as recurrent (principal); K57.32 Diverticulitis of large intestine without perforation or abscess without bleeding; I50.32 Chronic diastolic (congestive) heart failure; K21.9 Gastro-esophageal reflux disease without esophagitis; M79.7 Fibromyalgia; M06.9 Rheumatoid arthritis, unspecified; I35.0 Nonrheumatic aortic (valve) stenosis; E78.00 Pure hypercholesterolemia, unspecified; I11.0 Hypertensive heart disease with heart failure; M81.0 Age-related osteoporosis without current pathological fracture; E03.9 Hypothyroidism, unspecified; I73.00 Raynaud's syndrome without gangrene; Z87.442 Personal history of urinary calculi; Z90.89 Acquired absence of other organs; Z98.891 History of uterine scar from previous surgery; Z90.710 Acquired absence of both cervix and uterus; Z87.891 Personal history of nicotine dependence; Z79.82 Long term (current) use of aspirin; Z79.899 Other long term (current) drug therapy
CPT/HCPCS: 36415; 74177; 80053; 81001; 83690; 85025; 87086; 87324; 87493; 96372-59; 96374-59; 96375; 96376; 99285-25; A9270; J0295; J0696; J1650; J2405; J3010; J7030; Q9967

== ENCOUNTER 2020-09-07 13:01 | Observation (INO) | payer MEDICARE, OTHER ==
[~2020-09-07] VITALS: Ht 152.4 cm; Wt 61.7 kg
[~2020-09-07 13:01] MED LIST changes: +DONEPEZIL HCL5 M2 PO; +LEVFLO500 PO; +METR500 PO; +Vancocin HCl125 MG PO
[2020-09-07 14:27] LABS: BASOPHILS ABSOLUTE AUTO 0.07 K/mm3 (0.00-0.23); BASOPHILS PERCENT AUTO 0 % (0-2); EOSINOPHILS PERCENT AUTO 0 % (0-6); Hematocrit 41.2 % (33.0-51.0); Hemoglobin 13.8 g/dL (11.5-16.0); IMMATURE GRAN ABSOLUTE AUTO 0.18 K/mm3 (0.00-0.10); IMMATURE GRAN PERCENT AUTO 1 % (0-1); LYMPHOCYTES ABSOLUTE AUTO 0.76 K/mm3 (0.84-5.20); LYMPHOCYTES PERCENT AUTO 3 % (21-46); MONOCYTES ABSOLUTE AUTO 1.15 K/mm3 (0.16-1.47); MONOCYTES PERCENT AUTO 5 % (4-13); Mean Corpuscular HGB 33.5 pg (26.0-34.0); Mean Corpuscular HGB Conc 33.5 g/dL (31.5-36.5); Mean Corpuscular Volume 100 fL (80-100); Mean Platelet Volume 9.4 fL (9.1-12.4); NEUTROPHILS ABSOLUTE AUTO 21.12 K/mm3 (1.96-9.15); NEUTROPHILS PERCENT AUTO 91 % (41-73); Platelet Count 344 K/mm3 (150-400); RDW Coefficient Variation 14.5 % (11.7-14.2); RDW Standard Deviation 52.8 fL (35.1-46.3); Red Blood Cell Count 4.12 M/mm3 (3.80-5.20); White Blood Cell Count 23.28 K/mm3 (4.00-11.30)
[2020-09-07 14:58] LABS: Alanine Aminotransfer (ALT/SGP 36 U/L (12-78); Albumin, Blood 3.2 g/dL (3.4-5.0); Albumin/Globulin Ratio 0.8 (0.8-1.8); Alk Phos 109 U/L (50-136); Anion Gap 7 mmol/L (6-16); Aspartate Aminotrans (AST/SGOT 28 U/L (12-37); Bilirubin, Total 0.4 mg/dL (0.1-1.0); Blood Urea Nitrogen 15 mg/dL (8-24); Bun/Creatinine Ratio 18.4 (12.0-20.0); CO2, Blood 24 mmol/L (21-32); Calcium, Blood 8.7 mg/dL (8.5-10.1); Chloride, Blood 103 mmol/L (98-108); Creatinine, Blood 0.82 mg/dL (0.40-1.00); Globulin, Blood 4.2 g/dL (2.2-4.0); Glomerular Filtration Rate >60 (60-); Glucose, Blood 135 mg/dL (70-99); Potassium, Blood 4.5 mmol/L (3.5-5.5); Sodium, Blood 134 mmol/L (136-145); Total Protein, Blood 7.4 g/dL (6.4-8.2); Troponin I <0.015 ng/mL (0.000-0.040)
[2020-09-07] MEDS ORDERED: LEVOTHYROXINE112 MC6 PO (18:18)
[2020-09-07] MEDS ORDERED: MIRALAX17 GM PO (18:19)
[2020-09-08 01:04] LABS: Campylobacter Sp Not Detected (NOT DETECT)
[2020-09-08 01:05] LABS: Adenovirus F 40/41 Not Detected (NOT DETECT); Astrovirus Not Detected (NOT DETECT); Cryptosporidium Not Detected (NOT DETECT); Cyclospora Cayetanensis Not Detected (NOT DETECT); E. Coli O157 Not Detected (NOT DETECT); Entamoeba Histolytica Not Detected (NOT DETECT); Enteroaggregative E. coli-EAEC Not Detected (NOT DETECT); Enteropathogenic E. coli-EPEC Not Detected (NOT DETECT); Enterotoxigenic E. coli-ETEC Not Detected (NOT DETECT); Giardia Lamblia Not Detected (NOT DETECT); Norovirus GI/GII Not Detected (NOT DETECT); Plesiomonas Shigelloides Not Detected (NOT DETECT); Rotavirus A Not Detected (NOT DETECT); Salmonella Sp Not Detected (NOT DETECT); Sapovirus Not Detected (NOT DETECT); Shiga Toxin-prod E. coli-STEC Not Detected (NOT DETECT); Shigella/Enteroin E. coli-EIEC Not Detected (NOT DETECT); Vibrio Cholerae Not Detected (NOT DETECT); Vibrio Sp Not Detected (NOT DETECT); Yersinia Enterocolitica Not Detected (NOT DETECT)
[2020-09-08 01:19] LABS: BASOPHILS ABSOLUTE AUTO 0.04 K/mm3 (0.00-0.23); BASOPHILS PERCENT AUTO 0 % (0-2); EOSINOPHILS ABSOLUTE AUTO 0.02 K/mm3 (0.00-0.68); EOSINOPHILS PERCENT AUTO 0 % (0-6); Hematocrit 35.3 % (33.0-51.0); Hemoglobin 11.8 g/dL (11.5-16.0); IMMATURE GRAN ABSOLUTE AUTO 0.06 K/mm3 (0.00-0.10); IMMATURE GRAN PERCENT AUTO 0 % (0-1); LYMPHOCYTES ABSOLUTE AUTO 0.74 K/mm3 (0.84-5.20); LYMPHOCYTES PERCENT AUTO 4 % (21-46); MONOCYTES ABSOLUTE AUTO 1.13 K/mm3 (0.16-1.47); MONOCYTES PERCENT AUTO 6 % (4-13); Mean Corpuscular HGB Conc 33.4 g/dL (31.5-36.5); Mean Corpuscular Volume 99 fL (80-100); NEUTROPHILS ABSOLUTE AUTO 15.87 K/mm3 (1.96-9.15); NEUTROPHILS PERCENT AUTO 89 % (41-73); Platelet Count 289 K/mm3 (150-400); RDW Coefficient Variation 14.3 % (11.7-14.2); RDW Standard Deviation 51.5 fL (35.1-46.3); Red Blood Cell Count 3.58 M/mm3 (3.80-5.20); White Blood Cell Count 17.86 K/mm3 (4.00-11.30)
[2020-09-08 01:35] LABS: Anion Gap 4 mmol/L (6-16); Blood Urea Nitrogen 14 mg/dL (8-24); Bun/Creatinine Ratio 20.1 (12.0-20.0); CO2, Blood 26 mmol/L (21-32); Calcium, Blood 7.5 mg/dL (8.5-10.1); Chloride, Blood 107 mmol/L (98-108); Glomerular Filtration Rate >60 (60-); Glucose, Blood 117 mg/dL (70-99); Potassium, Blood 3.7 mmol/L (3.5-5.5); Sodium, Blood 137 mmol/L (136-145)
--- NOTE | 2020-09-08 05:26 | NUR ---
SHIFT SUMMARY PATIENT ALERT AND ORIENTED. HAD NO COMPLAINTS OF CHEST PAIN. DID HAVE SOME OCCASIONAL SHORTNESS OF BREATH UPON EXHERTION. PATIENT SLEPT WELL OVERNIGHT. IV PATENT AND FLUSHED. BED IN LOWEST POSITION WITH WHEELS LOCKED. CALL LIGHT WITHIN REACH. REPORT GIVEN TO ONCOMING RN.
[2020-09-08] MEDS ORDERED: Vancocin HCl125 MG PO (12:11)
[2020-09-08] MEDS ORDERED: VANCOMYCIN PO (12:13)
--- NOTE | 2020-09-08 13:35 | NUR ---
Patient is lying in bed on her side with the covers over her head. She easily awakens to the sound of her name. She tell me that she is going home today and that she is excited about that. She tells me about her strong family support and her strong el. I provide therapeutic listening and prayer. Patient is easily encouraged by prayer and voices appreciation for it.
--- NOTE | 2020-09-08 13:49 | NUR ---
PT DISCHARGE TO HOME. PT EDUCATED TO FINISH THE MEDICATIONS PER . PT GIVEN INSTRUCTIONS AND EDUCATED ABOUT THE C-DIFF. IV DC'D AND PT DTR ALSO EDUCATED AT BEDSIDE. NO OTHER CONCERNS. DISCHARGE PAPER WITH PT AND DTR AND EDUCATED
--- NOTE | 2020-09-08 16:29 | NUR ---
Update 09/08/2020: Pt. appropriate for discharge per Dr. Rivas. I was not able to meet with pt. prior to discharge as she was discharged prior to me having a chance to meet with her. She is scheduled for a hospital F/U 09/14/20 at 12pm. GINGER team will follow-up with pt.
== END 2020-09-08 13:20 | disposition home or self-care (01) ==
LOC: ER 13:01 → MEDS 19:20 → ENPENDDIS 09-08 11:55 → MEDS 09-08 13:20
PROVIDERS: Family Medicine; Physician Assistant; ADMIT Internal Medicine
DX: R07.9 Chest pain, unspecified (principal); R06.02 Shortness of breath; I44.7 Left bundle-branch block, unspecified; R51.9 Headache, unspecified; G89.29 Other chronic pain; M54.2 Cervicalgia; S19.9XXS Unspecified injury of neck, sequela; M79.7 Fibromyalgia; A04.72 Enterocolitis due to Clostridium difficile, not specified as recurrent; F03.90 Unspecified dementia, unspecified severity, without behavioral disturbance, psychotic disturbance, mood disturbance, and anxiety; K57.92 Diverticulitis of intestine, part unspecified, without perforation or abscess without bleeding; I35.8 Other nonrheumatic aortic valve disorders; I11.0 Hypertensive heart disease with heart failure; I50.32 Chronic diastolic (congestive) heart failure; E03.9 Hypothyroidism, unspecified; M81.0 Age-related osteoporosis without current pathological fracture; K21.9 Gastro-esophageal reflux disease without esophagitis; E78.00 Pure hypercholesterolemia, unspecified; I73.00 Raynaud's syndrome without gangrene; M06.9 Rheumatoid arthritis, unspecified; Z88.8 Allergy status to other drugs, medicaments and biological substances; Z79.82 Long term (current) use of aspirin; Z85.01 Personal history of malignant neoplasm of esophagus; Z90.49 Acquired absence of other specified parts of digestive tract; Z87.891 Personal history of nicotine dependence
CPT/HCPCS: 0097U; 36415; 71046; 80048; 80053; 83880; 84443; 84484; 85025; 93005; 93010; 96372; 96374; 96376; 97161; 99285-25; A9270; G0378; J1650; J7030

== ENCOUNTER 2020-10-05 16:47 | Emergency (ER) | payer MEDICARE, OTHER ==
[~2020-10-05] VITALS: Ht 152.4 cm; Wt 59.0 kg
[~2020-10-05 16:47] MED LIST changes: +LEVOTHYROXINE112 MC6 PO; +VANCOMYCIN PO
[2020-10-05 18:47] LABS: Hematocrit 40.4 % (33.0-51.0); Hemoglobin 13.6 g/dL (11.5-16.0); Mean Corpuscular HGB 33.3 pg (26.0-34.0); Mean Corpuscular HGB Conc 33.7 g/dL (31.5-36.5); Mean Corpuscular Volume 99 fL (80-100); Mean Platelet Volume 9.3 fL (9.1-12.4); NRBC ABSOLUTE 0.02 K/mm3 (0.00-0.02); NRBC Auto 0.1 /100 WBC (0.0-0.2); Platelet Count 377 K/mm3 (150-400); RDW Coefficient Variation 13.5 % (11.7-14.2); RDW Standard Deviation 49.7 fL (35.1-46.3); Red Blood Cell Count 4.09 M/mm3 (3.80-5.20); White Blood Cell Count 14.15 K/mm3 (4.00-11.30)
[2020-10-05 19:05] LABS: Alanine Aminotransfer (ALT/SGP 16 U/L (12-78); Albumin/Globulin Ratio 0.8 (0.8-1.8); Alk Phos 116 U/L (50-136); Anion Gap 7 mmol/L (6-16); Aspartate Aminotrans (AST/SGOT 13 U/L (12-37); Bilirubin, Total 0.3 mg/dL (0.1-1.0); Blood Urea Nitrogen 12 mg/dL (8-24); Bun/Creatinine Ratio 15.1 (12.0-20.0); CO2, Blood 25 mmol/L (21-32); Calcium, Blood 8.6 mg/dL (8.5-10.1); Chloride, Blood 106 mmol/L (98-108); Creatinine, Blood 0.79 mg/dL (0.40-1.00); Globulin, Blood 3.9 g/dL (2.2-4.0); Glomerular Filtration Rate >60 (60-); Glucose, Blood 100 mg/dL (70-99); Potassium, Blood 3.7 mmol/L (3.5-5.5); Sodium, Blood 138 mmol/L (136-145); Total Protein, Blood 6.9 g/dL (6.4-8.2)
[2020-10-05 19:07] LABS: Troponin I <0.015 ng/mL (0.000-0.040)
[2020-10-05 19:37] LABS: BAND PERCENT MAN 25 % (0-8); BASOPHILS PERCENT MAN 0 % (0-2); EOSINOPHILS PERCENT MAN 0 % (0-6); LYMPHOCYTES % ATYPICAL MANUAL 2 % (0-0); LYMPHOCYTES ABSOLUTE MAN 1.98 K/mm3 (0.84-5.20); LYMPHOCYTES PERCENT MAN 12 % (21-46); METAMYELOCYTE ABSOLUTE MAN 0.14 K/mm3 (0.00-0.00); METAMYELOCYTE PERCENT MAN 1 % (0-0); MONOCYTES ABSOLUTE MAN 1.98 K/mm3 (0.16-1.47); MONOCYTES PERCENT MAN 14 % (4-13); MYELOCYTE ABSOLUTE MAN 0.14 K/mm3 (0.00-0.00); MYELOCYTE PERCENT MAN 1 % (0-0); SEG NEUTROPHILS PERCENT MAN 45 % (41-73); TOTAL CELLS COUNTED 100
[2020-10-05 21:22] LABS: Adenovirus F 40/41 Not Detected (NOT DETECT); Astrovirus Not Detected (NOT DETECT); Campylobacter Sp Not Detected (NOT DETECT); Cryptosporidium Not Detected (NOT DETECT); Cyclospora Cayetanensis Not Detected (NOT DETECT); E. Coli O157 Not Detected (NOT DETECT); Entamoeba Histolytica Not Detected (NOT DETECT); Enteroaggregative E. coli-EAEC Not Detected (NOT DETECT); Enteropathogenic E. coli-EPEC Not Detected (NOT DETECT); Enterotoxigenic E. coli-ETEC Not Detected (NOT DETECT); Giardia Lamblia Not Detected (NOT DETECT); Norovirus GI/GII Not Detected (NOT DETECT); Plesiomonas Shigelloides Not Detected (NOT DETECT); Rotavirus A Not Detected (NOT DETECT); Salmonella Sp Not Detected (NOT DETECT); Sapovirus Not Detected (NOT DETECT); Shiga Toxin-prod E. coli-STEC Not Detected (NOT DETECT); Shigella/Enteroin E. coli-EIEC Not Detected (NOT DETECT); Vibrio Cholerae Not Detected (NOT DETECT); Vibrio Sp Not Detected (NOT DETECT); Yersinia Enterocolitica Not Detected (NOT DETECT)
[2020-10-05] MEDS ORDERED: DIFICID200 MG PO (21:57)
== END 2020-10-05 22:35 | disposition home or self-care (01) ==
LOC: ER 16:47
PROVIDERS: Emergency Medicine
DX: A04.72 Enterocolitis due to Clostridium difficile, not specified as recurrent (principal); I11.0 Hypertensive heart disease with heart failure; I50.32 Chronic diastolic (congestive) heart failure; E03.9 Hypothyroidism, unspecified; M79.7 Fibromyalgia; K21.9 Gastro-esophageal reflux disease without esophagitis; Z88.8 Allergy status to other drugs, medicaments and biological substances; Z79.899 Other long term (current) drug therapy; Z79.82 Long term (current) use of aspirin; Z87.19 Personal history of other diseases of the digestive system
CPT/HCPCS: 0097U; 36415; 80053; 84484; 85025; 87324; 93005; 93010; 96361; 96374; 99285-25; A9270; J2405; J7120

== ENCOUNTER → 2021-02-25 | Outpatient (CLI) | payer MEDICARE, OTHER ==
[~2021-02-25] MED LIST changes: +DIFICID200 MG PO
[2021-02-25 12:14] LABS: BASOPHILS ABSOLUTE AUTO 0.04 K/mm3 (0.00-0.23); BASOPHILS PERCENT AUTO 0 % (0-2); EOSINOPHILS ABSOLUTE AUTO 0.03 K/mm3 (0.00-0.68); EOSINOPHILS PERCENT AUTO 0 % (0-6); Hematocrit 42.9 % (33.0-51.0); Hemoglobin 14.6 g/dL (11.5-16.0); IMMATURE GRAN ABSOLUTE AUTO 0.04 K/mm3 (0.00-0.10); IMMATURE GRAN PERCENT AUTO 0 % (0-1); LYMPHOCYTES ABSOLUTE AUTO 1.19 K/mm3 (0.84-5.20); LYMPHOCYTES PERCENT AUTO 13 % (21-46); MONOCYTES ABSOLUTE AUTO 0.98 K/mm3 (0.16-1.47); MONOCYTES PERCENT AUTO 11 % (4-13); Mean Corpuscular HGB 33.6 pg (26.0-34.0); Mean Corpuscular Volume 99 fL (80-100); Mean Platelet Volume 9.5 fL (9.1-12.4); NEUTROPHILS ABSOLUTE AUTO 7.04 K/mm3 (1.96-9.15); NEUTROPHILS PERCENT AUTO 76 % (41-73); Platelet Count 306 K/mm3 (150-400); RDW Coefficient Variation 13.7 % (11.7-14.2); RDW Standard Deviation 50.4 fL (35.1-46.3); Red Blood Cell Count 4.35 M/mm3 (3.80-5.20); White Blood Cell Count 9.32 K/mm3 (4.00-11.30)
[2021-02-25 12:17] LABS: Bun/Creatinine Ratio 22.9 (12.0-20.0); Creatinine, Blood 1.18 mg/dL (0.40-1.00); Potassium, Blood 4.3 mmol/L (3.5-5.5)
== END ==
LOC: LAB SHORT 12:07
PROVIDERS: Chiropractor
DX: R11.2 Nausea with vomiting, unspecified (principal)
CPT/HCPCS: 80048; 85025

== ENCOUNTER → 2021-03-01 | Outpatient (CLI) | payer MEDICARE, OTHER ==
[2021-03-03 14:20] LABS: C DIFFICILE DNA NEGATIVE (Negative)
== END | disposition home or self-care (01) ==
LOC: LAB SHORT 16:00
PROVIDERS: Chiropractor
DX: R11.2 Nausea with vomiting, unspecified (principal)
CPT/HCPCS: 87493

== ENCOUNTER → 2021-10-20 | Outpatient (CLI) | payer MEDICARE, OTHER ==
[~2021-10-20] MED LIST changes: +Colace250 MG PO; +Flomax0.4 MG PO; +Roxicodone5 MG PO
[2021-10-20 21:07] LABS: Free Thyroxine 0.97 ng/dL (0.70-1.60); Thyroid Stimulating Hormone 0.306 uIU/mL (0.360-4.800)
== END | disposition home or self-care (01) ==
LOC: LAB SHORT 15:00
PROVIDERS: Family Medicine
DX: E78.5 Hyperlipidemia, unspecified (principal)
CPT/HCPCS: 84439; 84443

== ENCOUNTER → 2022-03-08 | Outpatient (CLI) | payer MEDICARE, OTHER ==
[2022-03-08 18:45] LABS: Hematocrit 44.2 % (33.0-51.0); Hemoglobin 14.6 g/dL (11.5-16.0); Mean Corpuscular HGB 33.3 pg (26.0-34.0); Mean Corpuscular Volume 101 fL (80-100); Mean Platelet Volume 10.6 fL (9.1-12.4); Platelet Count 244 K/mm3 (150-400); RDW Coefficient Variation 13.1 % (11.7-14.2); Red Blood Cell Count 4.39 M/mm3 (3.80-5.20); White Blood Cell Count 13.99 K/mm3 (4.00-11.30)
[2022-03-08 21:22] LABS: Alanine Aminotransfer (ALT/SGP 77 U/L (12-78); Albumin/Globulin Ratio 0.9 (0.8-1.8); Alk Phos 133 U/L (50-136); Anion Gap 7 mmol/L (6-16); Aspartate Aminotrans (AST/SGOT 46 U/L (12-37); Bilirubin, Total 0.6 mg/dL (0.1-1.0); Blood Urea Nitrogen 23 mg/dL (8-24); Bun/Creatinine Ratio 26.6 (12.0-20.0); CO2, Blood 25 mmol/L (21-32); Calcium, Blood 9.3 mg/dL (8.5-10.1); Chloride, Blood 106 mmol/L (98-108); Creatinine, Blood 0.86 mg/dL (0.40-1.00); Free Thyroxine 1.62 ng/dL (0.70-1.60); Globulin, Blood 3.5 g/dL (2.2-4.0); Glomerular Filtration Rate 65 (60-); Glucose, Blood 118 mg/dL (70-99); Potassium, Blood 4.3 mmol/L (3.5-5.5); Sodium, Blood 138 mmol/L (136-145); Thyroid Stimulating Hormone <0.005 uIU/mL (0.360-4.800); Total Protein, Blood 6.5 g/dL (6.4-8.2)
== END | disposition home or self-care (01) ==
LOC: LAB SHORT 14:45
PROVIDERS: Nurse Practitioner Family
DX: E03.9 Hypothyroidism, unspecified (principal); R31.9 Hematuria, unspecified; R53.83 Other fatigue; R53.81 Other malaise
CPT/HCPCS: 80053; 84439; 84443; 85027

== ENCOUNTER 2022-03-29 12:17 | Emergency (ER) | payer MEDICARE, OTHER ==
[~2022-03-29] VITALS: Ht 144.8 cm; Wt 53.1 kg
[2022-03-29 13:00] LABS: BASOPHILS ABSOLUTE AUTO 0.04 K/mm3 (0.00-0.23); BASOPHILS PERCENT AUTO 1 % (0-2); EOSINOPHILS ABSOLUTE AUTO 0.09 K/mm3 (0.00-0.68); EOSINOPHILS PERCENT AUTO 2 % (0-6); Hematocrit 41.5 % (33.0-51.0); Hemoglobin 13.9 g/dL (11.5-16.0); IMMATURE GRAN ABSOLUTE AUTO 0.02 K/mm3 (0.00-0.10); IMMATURE GRAN PERCENT AUTO 0 % (0-1); LYMPHOCYTES ABSOLUTE AUTO 1.31 K/mm3 (0.84-5.20); LYMPHOCYTES PERCENT AUTO 25 % (21-46); MONOCYTES ABSOLUTE AUTO 0.54 K/mm3 (0.16-1.47); MONOCYTES PERCENT AUTO 11 % (4-13); Mean Corpuscular HGB 33.3 pg (26.0-34.0); Mean Corpuscular HGB Conc 33.5 g/dL (31.5-36.5); Mean Corpuscular Volume 100 fL (80-100); Mean Platelet Volume 9.9 fL (9.1-12.4); NEUTROPHILS ABSOLUTE AUTO 3.15 K/mm3 (1.96-9.15); NEUTROPHILS PERCENT AUTO 61 % (41-73); Platelet Count 382 K/mm3 (150-400); RDW Coefficient Variation 13.2 % (11.7-14.2); RDW Standard Deviation 48.5 fL (35.1-46.3); Red Blood Cell Count 4.17 M/mm3 (3.80-5.20); White Blood Cell Count 5.15 K/mm3 (4.00-11.30)
[2022-03-29 13:24] LABS: Albumin, Blood 2.9 g/dL (3.4-5.0); Albumin/Globulin Ratio 0.8 (0.8-1.8); Bilirubin, Total 0.5 mg/dL (0.1-1.0); Bun/Creatinine Ratio 20.9 (12.0-20.0); Calcium, Blood 9.4 mg/dL (8.5-10.1); Creatinine, Blood 0.72 mg/dL (0.40-1.00); Globulin, Blood 3.6 g/dL (2.2-4.0); Potassium, Blood 4.3 mmol/L (3.5-5.5); Total Protein, Blood 6.5 g/dL (6.4-8.2)
[2022-03-29] MEDS ORDERED: ESCI10 PO (14:32)
[2022-03-29 15:11] LABS: Source, Urine Clean Catch
[2022-03-29 15:16] LABS: Appearance, Urine Hazy (Clear); Bilirubin, Urine Neg (Neg); Blood, Urine 4+ (Neg); Color, Urine Yellow (P-Yellow); Glucose Qualitative, Urine Neg (Neg); Ketones, Urine Neg (Neg); Leukocyte Esterase, Urine 1+ (Neg); Nitrite, Urine Neg (Neg); Protein, Urine 2+ (Neg); Specific Gravity, Urine 1.025 (1.003-1.022); Urobilinogen, Urine NORM (Normal)
[2022-03-29 15:32] LABS: Amorphous Light (0-Heavy); Bacteria Mod /hpf; Calcium Oxalate Crystals Mod /hpf; Squamous Epithelial Cells Rare /hpf (Few)
[2022-03-29] MEDS ORDERED: CEPH500 PO (16:07)
== END 2022-03-29 16:16 | disposition home or self-care (01) ==
LOC: ER 12:17
PROVIDERS: Student in an Organized Health Care Education/Training Program
DX: N39.0 Urinary tract infection, site not specified (principal); M79.7 Fibromyalgia; K21.9 Gastro-esophageal reflux disease without esophagitis; I11.0 Hypertensive heart disease with heart failure; I50.32 Chronic diastolic (congestive) heart failure; E03.9 Hypothyroidism, unspecified; Z88.8 Allergy status to other drugs, medicaments and biological substances; Z79.899 Other long term (current) drug therapy; Z79.82 Long term (current) use of aspirin
CPT/HCPCS: 36415; 71046; 80053; 81001; 83880; 84484; 85025; 87086; 93005; 93010; 96365; 99285-25; J0696

== ENCOUNTER → 2024-04-23 | Outpatient (CLI) | payer MEDICARE, OTHER ==
[~2024-04-23] MED LIST changes: +CEPH500 PO; +ESCI10 PO; -LEVOTHYROXINE112 MC6 PO; +LEVSOD75 PO
[2024-04-23 18:21] LABS: Free Thyroxine 0.67 ng/dL (0.70-1.60); Thyroid Stimulating Hormone 15.7 uIU/mL (0.360-4.800)
== END ==
LOC: LAB 16:08 → LAB SHORT 16:08
PROVIDERS: Nurse Practitioner Family
DX: E03.9 Hypothyroidism, unspecified (principal)
CPT/HCPCS: 84439; 84443